=== PATIENT | male | born 1940 | race Caucasian/White ===

== ENCOUNTER 2019-01-26 16:02 | Inpatient (IN) | payer MEDICARE, OTHER ==
[2019-01-26] MEDS ORDERED: SODIUM CHLORIDE 0.9% 1,000 ML IV STA ×2 (16:35)
--- NOTE | 2019-01-26 16:35 | ED ---
Fever HPI - General Chief Complaint: Fever Stated Complaint: elevated temp Time Seen by Provider: 01/26/19 16:12 Source: patient, EMS, RN notes reviewed, old records reviewed Mode of arrival: EMS Limitations: no limitations, altered mental status - History of Present Illness Initial Comments: This is an 78-year-old male the ER for evaluation. Presents today for evaluation regards to fever. Fever and burning with urination. No recent travel history no sick contacts. Patient has multiple recent hospital admissions. Patient has cough or congestion denies any other pain patient does have significant medical history is presenting today with altered mental status. Prior medical notes and EMS MD Complaint: fever, weakness -: unknown Context: sick contacts Associated Symptoms: chills, myalgias, abdominal pain, confusion Treatments Prior to Arrival: none - Related Data Home Medications Medication Instructions Recorded Confirmed ALPRAZolam [Xanax] 0.5 mg PO BID PRN 12/03/13 01/26/19 Atorvastatin [Lipitor] 80 mg PO HS 12/03/13 01/26/19 Nitroglycerin Sl Tabs [Nitrostat] 0.4 mg SL Q5M PRN 12/03/13 01/26/19 Ergocalciferol [Vitamin D2 50,000 unit PO MO 02/22/16 01/26/19 (DRISDOL)] Acetaminophen [Tylenol Arthritis] 650 mg PO Q8H PRN 01/26/19 01/26/19 Divalproex Sodium [Depakote ER] 250 mg PO DAILY 01/26/19 01/26/19 HYDROcodone/APAP 7.5-325MG [[place] 1 tab PO TID 01/26/19 01/26/19 7.5-325] Sertraline [Zoloft] 100 mg PO DAILY 01/26/19 01/26/19 Tamsulosin [Flomax] 0.4 mg PO HS 01/26/19 01/26/19 Previous Rx's Medication Instructions Recorded Pantoprazole [Protonix] 40 mg PO AC-BRKFST #30 tablet. 12/15/15 Allergies Allergy/AdvReac Type Severity Reaction Status Date / Time Penicillins Allergy Rash/Hives Verified 01/26/19 17:18 Review of Systems ROS Statement: Those systems with pertinent positive or pertinent negative responses have been documented in the HPI. ROS Other: All systems not noted in ROS Statement are negative. Past Medical History Past Medical History: Coronary Artery Disease (CAD), Cancer, Chest Pain / Angina, COPD, Eye Disorder, GERD/Reflux, Hyperlipidemia, Hypertension, Myocardial Infarction (MO), Osteoarthritis (OA), Pneumonia, Prostate Disorder Additional Past Medical History / Comment(s): INCONT OF URINE- USES DEPENDS, G LAUCOMA- WEARS GLASSES TO DRIVE ONLY, pain lt hip and rt knee, prostate cancer recently dx has'nt had nay sx or radiation or chemo as of yet."hypoglycemia".dwayne inguinal hernia, stated has lost 50 pouns since september 2014, uti Last Myocardial Infarction Date:: 2012 History of Any Multi-Drug Resistant Organisms: None Reported Past Surgical History: Back Surgery, Heart Catheterization With Stent, Joint Replacement, Orthopedic Surgery Additional Past Surgical History / Comment(s): 2 STENTS, CATARACT, LASER EYE SX, FUSION TO BACK, RT KNEE REPLACEMENT X2, LT HAND PINKY FINGER SX, "lt hip surgery with metal" POPPED OUT A FEW TIMES & HAD TO BE POPPED BACK IN, PAIN CLINIC PROCEDURE, COLONOSCOPY Past Anesthesia/Blood Transfusion Reactions: No Reported Reaction Date of Last Stent Placement:: 2012 Past Psychological History: Anxiety, Depression Smoking Status: Current every day smoker Past Alcohol Use History: None Reported Past Drug Use History: None Reported - Past Family History Daughter(s) Family Medical History: No Reported History Additional Family Medical History / Comment(s): left leg fx x3; right leg fx x1. left wrist fx x2; breast reduction sx; hyst; cystocele; tubal; anxiety, depression Mother Family Medical History: Myocardial Infarction ([place]) Additional Family Medical History / Comment(s): 1979- Father Additional Family Medical History / Comment(s): WITH GANGRENE @ AGE 65 General Exam Limitations: no limitations General appearance: alert, in no apparent distress Head exam: Present: atraumatic, normocephalic, normal inspection Eye exam: Present: normal appearance, PERRL, EOMI. Absent: scleral icterus, conjunctival injection, periorbital swelling ENT exam: Present: normal exam, mucous membranes moist Neck exam: Present: normal inspection. Absent: tenderness, meningismus, lymphad enopathy Respiratory exam: Present: normal lung sounds bilaterally. Absent: respiratory distress, wheezes, rales, rhonchi, stridor Cardiovascular Exam: Present: regular rate, normal rhythm, normal heart sounds. Absent: systolic murmur, diastolic murmur, rubs, gallop, clicks GI/Abdominal exam: Present: soft, normal bowel sounds. Absent: distended, tenderness, guarding, rebound, rigid Extremities exam: Present: normal inspection, full ROM, normal capillary refill. Absent: tenderness, pedal edema, joint swelling, calf tenderness Back exam: Present: normal inspection Neurological exam: Present: alert, oriented X3, CN II-XII intact Psychiatric exam: Present: normal affect, normal mood Skin exam: Present: warm, dry, intact, normal color. Absent: rash Course Vital Signs 01/26/19 01/26/19 01/26/19 16:28 19:00 19:10 Temperature 101.1 F H 99.4 F Pulse Rate 77 68 Respiratory 18 18 Rate Blood Pressure 133/73 133/73 O2 Sat by Pulse 95 96 Oximetry - Reevaluation(s) Reevaluation #1: 01/26/19 16:37 Medical records reviewed Reevaluation #2: 01/26/19 19:30 patient with no improvement with clinical condition Medical Decision Making - Medical Decision Making 78 male to the ED co weakness. Noted of UTI fever. Patient be admitted for hydration and IV antibiotics and continue monitoring - Lab Data Result diagrams: 01/26/19 16:39 01/26/19 16:39 Lab Results 01/26/19 01/26/19 01/26/19 Range/Units 16:39 16:39 16:39 WBC 15.1 H (3.8-10.6) k/uL RBC 3.80 L (4.30-5.90) m/uL Hgb 12.4 L (13.0-17.5) gm/dL Hct 37.8 L (39.0-53.0) % MCV 99.5 (80.0-100.0) fL MCH 32.7 (25.0-35.0) pg MCHC 32.9 (31.0-37.0) g/dL RDW 14.4 (11.5-15.5) % Plt Count 184 (150-450) k/uL Neutrophils % 89 % Lymphocytes % 3 % Monocytes % 5 % Eosinophils % 2 % Basophils % 0 % Neutrophils # 13.5 H (1.3-7.7) k/uL Lymphocytes # 0.4 L (1.0-4.8) k/uL Monocytes # 0.8 (0-1.0) k/uL Eosinophils # 0.3 (0-0.7) k/uL Basophils # 0.0 (0-0.2) k/uL Macrocytosis Slight PT (9.0-12.0) sec INR (<1.2) APTT (22.0-30.0) sec Sodium 140 (137-145) mmol/L Potassium 4.1 (3.5-5.1) mmol/L Chloride 108 H (98-107) mmol/L Carbon Dioxide 21 L (22-30) mmol/L Anion Gap 11 mmol/L BUN 25 H (9-20) mg/dL Creatinine 1.33 H (0.66-1.25) mg/dL Est GFR (CKD-EPI)AfAm 58 (>60 ml/min/1.73 sqM) Est GFR (CKD-EPI)NonAf 50 (>60 ml/min/1.73 sqM) Glucose 110 H (74-99) mg/dL Plasma Lactic Acid Kenny 1.2 (0.7-2.0) mmol/L Calcium 8.4 (8.4-10.2) mg/dL Phosphorus 1.8 L (2.5-4.5) mg/dL Magnesium 1.6 (1.6-2.3) mg/dL Total Bilirubin 0.6 (0.2-1.3) mg/dL AST 21 (17-59) U/L ALT 18 L (21-72) U/L Alkaline Phosphatase 83 (38-126) U/L Troponin I (0.000-0.034) ng/mL Total Protein 7.0 (6.3-8.2) g/dL Albumin 3.9 (3.5-5.0) g/dL Urine Color Urine Appearance (Clear) Urine pH (5.0-8.0) Ur Specific [place] (1.001-1.035) Urine Protein (Negative) Urine Glucose (UA) (Negative) Urine Ketones (Negative) Urine Blood (Negative) Urine Nitrite (Negative) Urine Bilirubin (Negative) Urine Urobilinogen (<2.0) mg/dL Ur Leukocyte Esterase (Negative) Urine RBC (0-5) /hpf Urine WBC (0-5) /hpf Urine Bacteria (None) /hpf Urine Mucus (None) /hpf 01/26/19 01/26/19 01/26/19 Range/Units 16:39 16:39 16:39 WBC (3.8-10.6) k/uL RBC (4.30-5.90) m/uL Hgb (13.0-17.5) gm/dL Hct (39.0-53.0) % MCV (80.0-100.0) fL MCH (25.0-35.0) pg MCHC (31.0-37.0) g/dL RDW (11.5-15.5) % Plt Count (150-450) k/uL Neutrophils % % Lymphocytes % % Monocytes % % Eosinophils % % Basophils % % Neutrophils # (1.3-7.7) k/uL Lymphocytes # (1.0-4.8) k/uL Monocytes # (0-1.0) k/uL Eosinophils # (0-0.7) k/uL Basophils # (0-0.2) k/uL Macrocytosis PT 11.1 (9.0-12.0) sec INR 1.1 (<1.2) APTT 27.5 (22.0-30.0) sec Sodium (137-145) mmol/L Potassium (3.5-5.1) mmol/L Chloride (98-107) mmol/L Carbon Dioxide (22-30) mmol/L Anion Gap mmol/L BUN (9-20) mg/dL Creatinine (0.66-1.25) mg/dL Est GFR (CKD-EPI)AfAm (>60 ml/min/1.73 sqM) Est GFR (CKD-EPI)NonAf (>60 ml/min/1.73 sqM) Glucose (74-99) mg/dL Plasma Lactic Acid Kenny (0.7-2.0) mmol/L Calcium (8.4-10.2) mg/dL Phosphorus (2.5-4.5) mg/dL Magnesium (1.6-2.3) mg/dL Total Bilirubin (0.2-1.3) mg/dL AST (17-59) U/L ALT (21-72) U/L Alkaline Phosphatase (38-126) U/L Troponin I <0.012 (0.000-0.034) ng/mL Total Protein (6.3-8.2) g/dL Albumin (3.5-5.0) g/dL Urine Color Yellow Urine Appearance Cloudy (Clear) Urine pH 6.0 (5.0-8.0) Ur Specific [place] 1.017 (1.001-1.035) Urine Protein 1+ H (Negative) Urine Glucose (UA) Negative (Negative) Urine Ketones Negative (Negative) Urine Blood Moderate H (Negative) Urine Nitrite Positive (Negative) Urine Bilirubin Negative (Negative) Urine Urobilinogen <2.0 (<2.0) mg/dL Ur Leukocyte Esterase Large H (Negative) Urine RBC 6 H (0-5) /hpf Urine WBC 126 H (0-5) /hpf Urine Bacteria Rare H (None) /hpf Urine Mucus Rare H (None) /hpf Disposition Clinical Impression: Weakness, Fever, UTI (urinary tract infection) Disposition: ADMITTED IP TO THIS [facility] Condition: Fair Referrals: Allison Melendez MD [Primary Care Provider] - 1-2 days
[2019-01-26 16:51] LABS: Basophils % (A) 0 %; Eosinophils # (A) 0.3 k/uL (0-0.7); Eosinophils % (A) 2 %; HCT 37.8 % (39.0-53.0); HGB 12.4 gm/dL (13.0-17.5); Lymphocytes # (A) 0.4 k/uL (1.0-4.8); Lymphocytes % (A) 3 %; MCH 32.7 pg (25.0-35.0); MCHC 32.9 g/dL (31.0-37.0); MCV 99.5 fL (80.0-100.0); Macrocytosis Slight; Mean Platelet Volume 7.4; Monocytes # (A) 0.8 k/uL (0-1.0); Monocytes % (A) 5 %; Neutrophils # (A) 13.5 k/uL (1.3-7.7); Neutrophils % (A) 89 %; Platelet Count 184 k/uL (150-450); RDW 14.4 % (11.5-15.5); WBC 15.1 k/uL (3.8-10.6)
[2019-01-26] MEDS ORDERED: ACETAMINOPHEN TAB 500 MG TAB PO STA (16:52)
[2019-01-26] MEDS ORDERED: IBUPROFEN 600 MG TAB PO STA (16:52)
[2019-01-26 16:55] LABS: Appearance,Urine Cloudy (Clear); Bacteria,Urine Rare /hpf; Bilirubin,Urine Negative (Negative); Blood,Urine Moderate (Negative); Color,Urine Yellow; Glucose,Urine (UA) Negative (Negative); Ketones,Urine Negative (Negative); Leukocyte Esterase,Urine Large (Negative); Mucus,Urine Rare /hpf; Nitrite,Urine Positive (Negative); Protein,Urine 1+ (Negative); RBC,Urine 6 /hpf (0-5); Specific Gravity,Urine 1.017 (1.001-1.035); Urobilinogen,Urine <2.0 mg/dL (<2.0); WBC,Urine 126 /hpf (0-5)
[2019-01-26 16:59] LABS: Albumin 3.9 g/dL (3.5-5.0); Calcium 8.4 mg/dL (8.4-10.2); Magnesium 1.6 mg/dL (1.6-2.3); Phosphorus 1.8 mg/dL (2.5-4.5); Potassium 4.1 mmol/L (3.5-5.1); Total Bilirubin 0.6 mg/dL (0.2-1.3)
[2019-01-26 17:00] LABS: INR 1.1 (<1.2); Partial Thromboplastin Time 27.5 sec (22.0-30.0); Prothrombin Time 11.1 sec (9.0-12.0)
--- NOTE | 2019-01-26 19:22 | XR ---
EXAMINATION: XR chest 2V DATE AND TIME: 01/26/2019 5:34 PM CLINICAL INDICATION: PHH; Weakness TECHNIQUE: AP and lateral COMPARISON: 02/25/2016 FINDINGS: Cardiac pacemaker and EKG leads. The lungs are clear. The pleural spaces are negative. The cardiac silhouette is mildly enlarged. The remainder of the mediastinal silhouette is unremarkabl e. The skeletal structures and soft tissues are negative for acute findings. Right humeral shaft intramedullary calcification likely incidental enchondroma, which can be confirme d with a lack of pain referable to this position. IMPRESSION: NO ACUTE PROCESS.
[2019-01-26 20:45] LABS: Glucose,Whole Blood 125 mg/dL (75-99)
[2019-01-26 21:25] VITALS: BMI 25.1
[2019-01-26] MEDS ORDERED: ALPRAZolam 0.5 MG TAB PO PRN (21:47)
[2019-01-26] MEDS ORDERED: ACETAMINOPHEN TAB 325 MG TAB PO PRN (21:47)
[2019-01-26] MEDS ORDERED: NITROGLYCERIN SL TABS 0.4 MG TAB SUBLINGUAL PRN (21:47)
[2019-01-26] MEDS: TAMSULOSIN 0.4 MG CAP.ER.24H PO SCH (22:46)
[2019-01-26] MEDS: ATORVASTATIN 80 MG TAB PO SCH (22:46)
[2019-01-27] MEDS: NICOTINE 21MG/24HR PATCH TRANSDERM SCH (08:50)
[2019-01-27] MEDS ORDERED: ENOXAPARIN 40 MG/0.4 ML SYRINGE SQ SCH (09:00)
[2019-01-27] MEDS: HYDROcodone/APAP 7.5-325MG 1 EACH TAB PO PRN ×2 (13:37→20:57)
[2019-01-27] MEDS ORDERED: POLYETHYLENE GLYCOL 3350 17 GM POWD.PACK PO PRN (14:12)
[2019-01-27 15:12] LABS: Basophils % (A) 0 %; Eosinophils # (A) 0.2 k/uL (0-0.7); Eosinophils % (A) 2 %; HGB 11.2 gm/dL (13.0-17.5); Lymphocytes # (A) 0.9 k/uL (1.0-4.8); Lymphocytes % (A) 7 %; MCH 32.7 pg (25.0-35.0); MCV 102.2 fL (80.0-100.0); Macrocytosis Slight; Mean Platelet Volume 7.5; Monocytes # (A) 0.6 k/uL (0-1.0); Monocytes % (A) 5 %; Neutrophils % (A) 85 %; Platelet Count 158 k/uL (150-450); RBC 3.43 m/uL (4.30-5.90); RDW 14.5 % (11.5-15.5); WBC 12.9 k/uL (3.8-10.6)
--- NOTE | 2019-01-27 16:24 | P.HPIM ---
History of Present Illness 78-year-old pleasant gentleman came in with the dysuria increased urinary frequency found to have significant abnormal urine. Does have fever and leukocytosis denied any cough chest x-ray did not show any pneumonia. Patient denied any urinary retention denied any prostate problems never had any urinary tract infection in the past patient was started on Rocephin urine cultures blood cultures were obtain which are pending. Patient is feeling much better now and doesn't have any dysuria anymore doesn't have any altered mental status patient apparently presented with altered mental status to ER which improved now. Review of Systems REVIEW OF SYSTEMS: CONSTITUTIONAL: no malaise, no fatigue. HEENT: No recent visual problems or hearing problems. Denied any sore throat. CARDIOVASCULAR: No chest pain, orthopnea, PND, no palpitations, no syncope. PULMONARY: No shortness of breath, no cough, no hemoptysis. GASTROINTESTINAL: No diarrhea, no nausea, no vomiting, no abdominal pain. NEUROLOGICAL: No headaches, no weakness, no numbness. HEMATOLOGICAL: Denies any bleeding or petechiae. GENITOURINARY: As mentioned in HPI MUSCULOSKELETAL/RHEUMATOLOGICAL: Denies any joint pain, swelling, or any muscle pain. ENDOCRINE: Denies any polyuria or polydipsia. The rest of the 14-point review of systems is negative. Past Medical History Past Medical History: Coronary Artery Disease (CAD), Cancer, Chest Pain / Angina, COPD, Eye Disorder, GERD/Reflux, Hyperlipidemia, Hypertension, Myocardial Infarction (NM), Osteoarthritis (OA), Pneumonia, Prostate Disorder Additional Past Medical History / Comment(s): INCONT OF URINE- USES DEPENDS, GLAUCOMA- WEARS GLASSES TO DRIVE ONLY, pain lt hip and rt knee, prostate cancer recently dx has'nt had nay sx or radiation or chemo as of yet."hypoglycemia".dwayne inguinal hernia, stated has lost 50 pouns since september 2014, uti Last Myocardial Infarction Date:: 2012 History of Any Multi-Drug Resistant Organisms: None Reported Past Surgical History: Back Surgery, Heart Catheterization With Stent, Joint Replacement, Orthopedic Surgery Additional Past Surgical History / Comment(s): 2 STENTS, CATARACT, LASER EYE SX, FUSION TO BACK, RT KNEE REPLACEMENT X2, LT HAND PINKY FINGER SX, "lt hip surgery with metal" POPPED OUT A FEW TIMES & HAD TO BE POPPED BACK IN, PAIN CLINIC PROCEDURE, COLONOSCOPY Past Anesthesia/Blood Transfusion Reactions: No Reported Reaction Date of Last Stent Placement:: 2012 Past Psychological History: Anxiety, Depression Additional Psychological History / Comment(s): pt lives at [facility] WITH HIS EX AUTUM[employer],uses a rolling walker when up, still drives occ. pt has some depression over medical problems but denies any thoughts of wanting to harm self.no hopelessness. Smoking Status: Current every day smoker Past Alcohol Use History: None Reported Additional Past Alcohol Use History / Comment(s): STARTED SMOKING AGE 13(1955) SMOKES LESS THAN 1/2 PPD, PT WAS GIVEN SMOKING CESSATION BOOKLET LAST ADMIT,AUTUMN STATED HE HAS IT AT HOME Past Drug Use History: None Reported - Past Family History Daughter(s) Family Medical History: No Reported History Additional Family Medical History / Comment(s): left leg fx x3; right leg fx x1. left wrist fx x2; breast reduction sx; hyst; cystocele; tubal; anxiety, depression Mother Family Medical History: Myocardial Infarction ([place]) Additional Family Medical History / Comment(s): 1979- Father Additional Family Medical History / Comment(s): WITH GANGRENE @ AGE 65 Medications and Allergies Home Medications Medication Instructions Recorded Confirmed Type ALPRAZolam [Xanax] 0.5 mg PO BID PRN 12/03/13 01/26/19 History Atorvastatin [Lipitor] 80 mg PO HS 12/03/13 01/26/19 History Nitroglycerin Sl Tabs [Nitrostat] 0.4 mg SL Q5M PRN 12/03/13 01/26/19 History Pantoprazole [Protonix] 40 mg PO AC-BRKFST #30 tablet. 12/15/15 01/26/19 Rx Ergocalciferol [Vitamin D2 50,000 unit PO MO 02/22/16 01/26/19 History (CARMELO)] Acetaminophen [Tylenol Arthritis] 650 mg PO Q8H PRN 01/26/19 01/26/19 History Aspirin [Adult Low Dose Aspirin EC] 81 mg PO DAILY 01/26/19 01/26/19 History Divalproex Sodium [Depakote ER] 250 mg PO DAILY 01/26/19 01/26/19 History HYDROcodone/APAP 7.5-325MG [[place] 1 tab PO TID 01/26/19 01/26/19 History 7.5-325] Sertraline [Zoloft] 100 mg PO DAILY 01/26/19 01/26/19 History Tamsulosin [Flomax] 0.4 mg PO HS 01/26/19 01/26/19 History Allergies Allergy/AdvReac Type Severity Reaction Status Date / Time Penicillins Allergy Rash/Hives Verified 01/26/19 17:18 Physical Exam Vitals: Vital Signs Temp Pulse Pulse Resp BP BP Pulse Ox 01/27/19 15:00 98.1 F 60 20 102/54 95 01/27/19 14:16 20 01/27/19 08:00 20 01/27/19 04:30 97.6 F 68 20 104/59 98 01/26/19 20:45 98 F 82 20 98/56 97 01/26/19 20:08 98.4 F 61 20 111/80 96 01/26/19 20:00 169/99 01/26/19 19:10 68 18 133/73 96 01/26/19 19:00 99.4 F 01/26/19 16:28 101.1 F H 77 18 133/73 95 Intake and Output 01/27/19 01/27/19 01/27/19 06:59 14:59 22:59 Intake Total 100 Output Total 400 200 Balance -300 -200 Intake: Oral 100 Output: Urine 400 200 Other: Voiding Method Incontinent Incontinent # Voids 1 PHYSICAL EXAMINATION: GENERAL: The patient is alert and oriented x3, not in any acute distress. Well developed, well nourished. HEENT: Pupils are round and equally reacting to light. EOMI. No scleral icterus. No conjunctival pallor. Normocephalic, atraumatic. No pharyngeal erythema. No thyromegaly. CARDIOVASCULAR: S1 and S2 present. No murmurs, rubs, or gallops. PULMONARY: Chest is clear to auscultation, no wheezing or crackles. ABDOMEN: Soft, nontender, nondistended, normoactive bowel sounds. No palpable organomegaly. MUSCULOSKELETAL: No joint swelling or deformity. EXTREMITIES: No cyanosis, clubbing, or pedal edema. NEUROLOGICAL: Gross neurological examination did not reveal any focal deficits. SKIN: No rashes. Results CBC & Chem 7: 01/27/19 14:52 01/26/19 16:39 Labs: Abnormal Lab Results - Last 24 Hours (Table) 01/26/19 01/26/19 01/26/19 Range/Units 16:39 16:39 16:39 WBC 15.1 H (3.8-10.6) k/uL RBC 3.80 L (4.30-5.90) m/uL Hgb 12.4 L (13.0-17.5) gm/dL Hct 37.8 L (39.0-53.0) % MCV (80.0-100.0) fL Neutrophils # 13.5 H (1.3-7.7) k/uL Lymphocytes # 0.4 L (1.0-4.8) k/uL Chloride 108 H (98-107) mmol/L Carbon Dioxide 21 L (22-30) mmol/L BUN 25 H (9-20) mg/dL Creatinine 1.33 H (0.66-1.25) mg/dL Glucose 110 H (74-99) mg/dL POC Glucose (mg/dL) (75-99) mg/dL Phosphorus 1.8 L (2.5-4.5) mg/dL ALT 18 L (21-72) U/L Urine Protein 1+ H (Negative) Urine Blood Moderate H (Negative) Ur Leukocyte Esterase Large H (Negative) Urine RBC 6 H (0-5) /hpf Urine WBC 126 H (0-5) /hpf Urine Bacteria Rare H (None) /hpf Urine Mucus Rare H (None) /hpf 01/26/19 01/27/19 Range/Units 20:43 14:52 WBC 12.9 H (3.8-10.6) k/uL RBC 3.43 L (4.30-5.90) m/uL Hgb 11.2 L (13.0-17.5) gm/dL Hct 35.0 L (39.0-53.0) % MCV 102.2 H (80.0-100.0) fL Neutrophils # 11.0 H (1.3-7.7) k/uL Lymphocytes # 0.9 L (1.0-4.8) k/uL Chloride (98-107) mmol/L Carbon Dioxide (22-30) mmol/L BUN (9-20) mg/dL Creatinine (0.66-1.25) mg/dL Glucose (74-99) mg/dL POC Glucose (mg/dL) 125 H (75-99) mg/dL Phosphorus (2.5-4.5) mg/dL ALT (21-72) U/L Urine Protein (Negative) Urine Blood (Negative) Ur Leukocyte Esterase (Negative) Urine RBC (0-5) /hpf Urine WBC (0-5) /hpf Urine Bacteria (None) /hpf Urine Mucus (None) /hpf Microbiology - Last 24 Hours (Table) 01/26/19 16:39 Urine Culture - Preliminary Urine,Catheterized Thrombosis Risk Factor Assmnt - Choose All That Apply Any of the Below Risk Factors Present?: Yes Each Factor Represents 1 point: Abnormal pulmonary function (COPD) Other Risk Factors: Yes Each Risk Factor Represents 3 Points: Age 75 years or older Thrombosis Risk Factor Assessment Total Risk Factor Score: 4 Thrombosis Risk Factor Assessment Level: Moderate Risk Assessment and Plan Plan: -Sepsis secondary to urinary tract infection: The Patient continued on Rocephin, awaiting urine cultures and blood cultures -Acute renal failure probably prerenal azotemia and do not have his baseline creatinine chronic kidney disease cannot be ruled out at this time repeat basic metabolic profile acute renal failure secondary to prerenal azotemia from sepsis -Coronary artery disease with previous stents in the past -COPD -Gastroesophageal reflux disease -Hyperlipidemia -Hypertension Benign prostatic hypertrophy -Osteoarthritis in the past -Due to prophylaxis as subcutaneous heparin
[2019-01-27] MEDS: SODIUM CHLORIDE 0.9% 1,000 ML IV SCH (16:45)
[2019-01-27] MEDS: ATORVASTATIN 80 MG TAB PO SCH (20:57)
[2019-01-27] MEDS: HEPARIN SODIUM,PORCINE 5,000 UNIT/ML 1 ML VIAL SQ SCH (20:57)
[2019-01-27] MEDS: TAMSULOSIN 0.4 MG CAP.ER.24H PO SCH (20:57)
[2019-01-28] MEDS: SODIUM CHLORIDE 0.9% 1,000 ML IV SCH ×2 (06:26→10:03)
[2019-01-28] MEDS ORDERED: PANTOPRAZOLE 40 MG TABLET PO SCH (07:30)
[2019-01-28] MEDS: HEPARIN SODIUM,PORCINE 5,000 UNIT/ML 1 ML VIAL SQ SCH (08:07)
[2019-01-28] MEDS: NICOTINE 21MG/24HR PATCH TRANSDERM SCH (08:08)
[2019-01-28] MEDS: HYDROcodone/APAP 7.5-325MG 1 EACH TAB PO PRN (08:19)
[2019-01-28] MEDS ORDERED: DIVALPROEX ER 250 MG TAB.ER.24H PO SCH (09:00)
[2019-01-28] MEDS ORDERED: ASPIRIN 81 MG PO SCH (09:00)
[2019-01-28] MEDS ORDERED: SERTRALINE 100 MG TAB PO SCH (09:00)
[2019-01-28 10:20] LABS: Calcium 8.7 mg/dL (8.4-10.2); Potassium 4.3 mmol/L (3.5-5.1)
[2019-01-28 14:12] VITALS: BP 114/45; PULSE 61; RESP 18; TEMP 97.4
--- NOTE | 2019-01-28 16:16 | P.DS ---
Providers Date of admission: 01/28/19 07:07 Attending physician: Roberth Garcia Primary care physician: Allison Nora [facility] Course: Patient was admitted for sepsis secondary to urinary tract infection urine cultures are showing gram-negative bacilli do not have finalization of cultures ideally want to keep him on tomorrow to get the finalized cultures and decide on antibiotic but patient is insisting on discharge held at discharge the patient on empiric Ceftin will follow-up on the cultures tomorrow if needed to change the antibiotic was changed tomorrow and will call the patient at that time. PHYSICAL EXAMINATION: GENERAL: The patient is alert and oriented x3, not in any acute distress. Well developed, well nourished. HEENT: Pupils are round and equally reacting to light. EOMI. No scleral icterus. No conjunctival pallor. Normocephalic, atraumatic. No pharyngeal erythema. No thyromegaly. CARDIOVASCULAR: S1 and S2 present. No murmurs, rubs, or gallops. PULMONARY: Chest is clear to auscultation, no wheezing or crackles. ABDOMEN: Soft, nontender, nondistended, normoactive bowel sounds. No palpable organomegaly. MUSCULOSKELETAL: No joint swelling or deformity. EXTREMITIES: No cyanosis, clubbing, or pedal edema. NEUROLOGICAL: Gross neurological examination did not reveal any focal deficits. SKIN: No rashes. 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 Ergocalciferol [Vitamin D2 (DRISDOL)] 50,000 unit PO MO Sertraline [Zoloft] 100 mg PO DAILY HYDROcodone/APAP 7.5-325MG [[place] 7.5-325] 1 tab PO TID Tamsulosin [Flomax] 0.4 mg PO HS Divalproex Sodium [Depakote ER] 250 mg PO DAILY Acetaminophen [Tylenol Arthritis] 650 mg PO Q8H PRN PRN Reason: Pain Aspirin [Adult Low Dose Aspirin EC] 81 mg PO DAILY Discharge Medication List ALPRAZolam [Xanax] 0.5 mg PO BID PRN 12/03/13 [History] Atorvastatin [Lipitor] 80 mg PO HS 12/03/13 [History] Nitroglycerin Sl Tabs [Nitrostat] 0.4 mg SL Q5M PRN 12/03/13 [History] Pantoprazole [Protonix] 40 mg PO AC-BRKFST #30 tablet. 12/15/15 [Rx] Ergocalciferol [Vitamin D2 (DRISDOL)] 50,000 unit PO MO 02/22/16 [History] Acetaminophen [Tylenol Arthritis] 650 mg PO Q8H PRN 01/26/19 [History] Aspirin [Adult Low Dose Aspirin EC] 81 mg PO DAILY 01/26/19 [History] Divalproex Sodium [Depakote ER] 250 mg PO DAILY 01/26/19 [History] HYDROcodone/APAP 7.5-325MG [[place] 7.5-325] 1 tab PO TID 01/26/19 [History] Sertraline [Zoloft] 100 mg PO DAILY 01/26/19 [History] Tamsulosin [Flomax] 0.4 mg PO HS 01/26/19 [History] Cefuroxime Axetil [Ceftin] 500 mg PO BID 5 Days #10 tab 01/28/19 [Rx] Follow up Appointment(s)/Referral(s): Allison Melendez MD [Primary Care Provider] - 3 Days Activity/Diet/Wound Care/Special Instructions: [facility] [phone] Discharge Disposition: HOME SELF-CARE
--- NOTE | 2019-01-29 09:38 | P.PN ---
Progress Note - Text Patient's urine cultures were reviewed and it showed capsular pneumonia which is sensitive to the antibiotic he was sent home on which is Ceftin.
[2019-02-01] MEDS ORDERED: ERGOCALCIFEROL 50,000 UNIT CAP PO SCH (09:00)
== END 2019-01-28 17:08 | disposition home health service (06) | DRG 872 ==
LOC: EC 16:02 → 4MS4W 19:28 → OBSVTOIN 01-28 07:07
PROVIDERS: ADMIT Hospitalist; ATTEND Hospitalist
DX: A41.9 Sepsis, unspecified organism (principal); N39.0 Urinary tract infection, site not specified; N17.9 Acute kidney failure, unspecified; J44.9 Chronic obstructive pulmonary disease, unspecified; I25.10 Atherosclerotic heart disease of native coronary artery without angina pectoris; K21.9 Gastro-esophageal reflux disease without esophagitis; N40.0 Benign prostatic hyperplasia without lower urinary tract symptoms; E78.5 Hyperlipidemia, unspecified; I10 Essential (primary) hypertension; M19.90 Unspecified osteoarthritis, unspecified site; F17.200 Nicotine dependence, unspecified, uncomplicated; F32.9 Major depressive disorder, single episode, unspecified; F41.9 Anxiety disorder, unspecified; Z96.651 Presence of right artificial knee joint; H40.9 Unspecified glaucoma; I25.2 Old myocardial infarction; Z95.5 Presence of coronary angioplasty implant and graft; Z79.82 Long term (current) use of aspirin; Z79.899 Other long term (current) drug therapy; Z81.8 Family history of other mental and behavioral disorders; Z82.49 Family history of ischemic heart disease and other diseases of the circulatory system; Z85.46 Personal history of malignant neoplasm of prostate; Z88.0 Allergy status to penicillin; Z98.49 Cataract extraction status, unspecified eye; Z87.01 Personal history of pneumonia (recurrent)
CPT/HCPCS: 36415; 71046; 80048; 80053; 81001; 83605; 83735; 84100; 84484; 85025; 85610; 85730; 87040; 87077; 87086; 87186; 93005; 94760; 96361; 96365; 99285

== ENCOUNTER 2020-08-28 17:03 | Emergency (ER) | payer MEDICARE, OTHER ==
[2020-08-28 17:25] VITALS: RESP 20; TEMP 97.5
--- NOTE | 2020-08-28 17:58 | ED ---
General Adult HPI - General Chief complaint: Fall Stated complaint: Fall Time Seen by Provider: 08/28/20 17:25 Source: patient, EMS Mode of arrival: EMS Limitations: no limitations - History of Present Illness Initial comments: Dictation was produced using [employer] dictation software. please excuse any grammatical, word or spelling errors. This patient was cared for during a federal and state declared state of emergency secondary to Covid 19 Chief Complaint: 80-year-old male presents after fall. History of Present Illness: Is an 80-year-old male. In order to make a slight easy year he puts a jug that he urinates and whenever he has to go to the bathroom. He states that earlier today he was alleged to bed urinating. He states that he finished when all of a sudden he lost his balance fell and hit his head. He denies any loss of consciousness. Denies any neck pain. EMS brought the patient to the emergency department. Patient denies taking any blood thinners. He complains of some mild tailbone pain. Patient ambulatory after incident. The ROS documented in this emergency department record has been reviewed and confirmed by me. Those systems with pertinent positive or negative responses have been documented in the HPI. All other systems are other negative and/or noncontributory. PHYSICAL EXAM: General Impression: Alert and oriented x3, not in acute distress HEENT: Normocephalic atraumatic, extra-ocular movements intact, pupils equal and reactive to light bilaterally, mucous membranes moist. Cardiovascular: Heart regular rate and rhythm Chest: Able to complete full sentences, no retractions, no tachypnea Abdomen: abdomen soft, non-tender, non-distended, no organomegaly Musculoskeletal: Pulses present and equal in all extremities, no peripheral edema Motor: no focal deficits noted Neurological: CN II-XII grossly intact, no focal motor or sensory deficits noted Skin: Intact with no visualized rashes Psych: Normal affect and mood ED course: 80-year-old male presents after fall. As upon arrival are within acceptable limits. Patient's well-appearing at bedside. He has no signs of severe traumatic injury. Physical examination is benign. Patient read the emergency department with c-collar. Patient observed in emergency department for Laboratory evaluation obtained found to be within acceptable limits.. Computed tomography scan of the head and C-spine is unremarkable. Chest x-ray nonacute. Pelvis x-rays negative. Patient will be discharged. EKG interpretation: Ventricular rate 62, atrial paced rhythm, OR interval 234, QRS 92, QTC 426. No OR prolongation, no QTC prolongation, no ST or T-wave changes noted. Overall, this EKG is unremarkable Patient observed in the emergency department for approximately 2 hours and 30 minutes with stable medical condition. He is reevaluated at bedside at 7:40 PM. Patient is agreeable for discharge. Patient is well-appearing shot not showing any signs of weakness. Advised follow-up with his primary care physician. Return parameters discussed. - Related Data Home Medications Medication Instructions Recorded Confirmed ALPRAZolam [Xanax] 0.5 mg PO BID PRN 12/03/13 01/26/19 Atorvastatin [Lipitor] 80 mg PO HS 12/03/13 01/26/19 Nitroglycerin Sl Tabs [Nitrostat] 0.4 mg SL Q5M PRN 12/03/13 01/26/19 Ergocalciferol [Vitamin D2 50,000 unit PO MO 02/22/16 01/26/19 (CARMELO)] Acetaminophen [Tylenol Arthritis] 650 mg PO Q8H PRN 01/26/19 01/26/19 Aspirin [Adult Low Dose Aspirin EC] 81 mg PO DAILY 01/26/19 01/26/19 Divalproex Sodium [Depakote ER] 250 mg PO DAILY 01/26/19 01/26/19 HYDROcodone/APAP 7.5-325MG [[place] 1 tab PO TID 01/26/19 01/26/19 7.5-325] Sertraline [Zoloft] 100 mg PO DAILY 01/26/19 01/26/19 Tamsulosin [Flomax] 0.4 mg PO HS 01/26/19 01/26/19 Previous Rx's Medication Instructions Recorded Pantoprazole [Protonix] 40 mg PO AC-BRKFST #30 tablet. 12/15/15 Cefuroxime Axetil [Ceftin] 500 mg PO BID 5 Days #10 tab 01/28/19 Allergies Allergy/AdvReac Type Severity Reaction Status Date / Time Penicillins Allergy Rash/Hives Verified 08/28/20 17:25 Review of Systems ROS Statement: Those systems with pertinent positive or pertinent negative responses have been documented in the HPI. ROS Other: All systems not noted in ROS Statement are negative. Past Medical History Past Medical History: Coronary Artery Disease (CAD), Cancer, Chest Pain / Angina, COPD, Eye Disorder, GERD/Reflux, Hyperlipidemia, Hypertension, Myocardial Infarction (NH), Osteoarthritis (OA), Pneumonia, Prostate Disorder Additional Past Medical History / Comment(s): INCONT OF URINE- USES DEPENDS, GLAUCOMA- WEARS GLASSES TO DRIVE ONLY, pain lt hip and rt knee, prostate cancer recently dx has'nt had nay sx or radiation or chemo as of yet."hypoglycemia".dwayne inguinal hernia, stated has lost 50 pouns since september 2014, uti Last Myocardial Infarction Date:: 2012 History of Any Multi-Drug Resistant Organisms: None Reported Past Surgical History: Back Surgery, Heart Catheterization With Stent, Joint Replacement, Orthopedic Surgery Additional Past Surgical History / Comment(s): 2 STENTS, CATARACT, LASER EYE SX, FUSION TO BACK, RT KNEE REPLACEMENT X2, LT HAND PINKY FINGER SX, "lt hip surgery with metal" POPPED OUT A FEW TIMES & HAD TO BE POPPED BACK IN, PAIN CLINIC PROCEDURE, COLONOSCOPY Past Anesthesia/Blood Transfusion Reactions: No Reported Reaction Date of Last Stent Placement:: 2012 Past Psychological History: Anxiety, Depression Smoking Status: Current every day smoker Past Alcohol Use History: None Reported Past Drug Use History: None Reported - Past Family History Daughter(s) Family Medical History: No Reported History Additional Family Medical History / Comment(s): left leg fx x3; right leg fx x1. left wrist fx x2; breast reduction sx; hyst; cystocele; tubal; anxiety, depression Mother Family Medical History: Myocardial Infarction (NH) Additional Family Medical History / Comment(s): 1979- Father Additional Family Medical History / Comment(s): WITH GANGRENE @ AGE 65 General Exam Limitations: no limitations Course Vital Signs 08/28/20 08/28/20 17:20 19:02 Temperature 97.5 F L Pulse Rate 62 68 Respiratory 20 20 Rate Blood Pressure 116/56 132/76 O2 Sat by Pulse 98 93 L Oximetry Medical Decision Making - Lab Data Result diagrams: 08/28/20 18:12 08/28/20 18:12 Lab Results 08/28/20 08/28/20 Range/Units 18:12 18:12 WBC 7.5 (3.8-10.6) k/uL RBC 3.97 L (4.30-5.90) m/uL Hgb 13.4 (13.0-17.5) gm/dL Hct 39.3 (39.0-53.0) % MCV 99.1 (80.0-100.0) fL MCH 33.9 (25.0-35.0) pg MCHC 34.2 (31.0-37.0) g/dL RDW 13.8 (11.5-15.5) % Plt Count 189 (150-450) k/uL MPV 8.1 Neutrophils % 72 % Lymphocytes % 15 % Monocytes % 7 % Eosinophils % 4 % Basophils % 0 % Neutrophils # 5.4 (1.3-7.7) k/uL Lymphocytes # 1.1 (1.0-4.8) k/uL Monocytes # 0.5 (0-1.0) k/uL Eosinophils # 0.3 (0-0.7) k/uL Basophils # 0.0 (0-0.2) k/uL Sodium 140 (137-145) mmol/L Potassium 4.4 (3.5-5.1) mmol/L Chloride 102 (98-107) mmol/L Carbon Dioxide 31 H (22-30) mmol/L Anion Gap 7 mmol/L BUN 29 H (9-20) mg/dL Creatinine 1.21 (0.66-1.25) mg/dL Est GFR (CKD-EPI)AfAm 64 (>60 ml/min/1.73 sqM) Est GFR (CKD-EPI)NonAf 56 (>60 ml/min/1.73 sqM) Glucose 97 (74-99) mg/dL Calcium 8.9 (8.4-10.2) mg/dL Disposition Clinical Impression: Fall, Head contusion Disposition: HOME SELF-CARE Condition: Good Instructions (If sedation given, give patient instructions): Fall Prevention for Older Adults (ED) Is patient prescribed a controlled substance at d/c from ED?: No Referrals: Jonah Encarnacion MD [Primary Care Provider] - 1-2 days Time of Disposition: 19:37
[2020-08-28 18:21] LABS: Basophils % (A) 0 %; Eosinophils # (A) 0.3 k/uL (0-0.7); Eosinophils % (A) 4 %; HCT 39.3 % (39.0-53.0); HGB 13.4 gm/dL (13.0-17.5); Lymphocytes # (A) 1.1 k/uL (1.0-4.8); Lymphocytes % (A) 15 %; MCH 33.9 pg (25.0-35.0); MCHC 34.2 g/dL (31.0-37.0); MCV 99.1 fL (80.0-100.0); Mean Platelet Volume 8.1; Monocytes # (A) 0.5 k/uL (0-1.0); Monocytes % (A) 7 %; Neutrophils # (A) 5.4 k/uL (1.3-7.7); Neutrophils % (A) 72 %; Platelet Count 189 k/uL (150-450); RBC 3.97 m/uL (4.30-5.90); RDW 13.8 % (11.5-15.5); WBC 7.5 k/uL (3.8-10.6)
[2020-08-28 18:29] LABS: Calcium 8.9 mg/dL (8.4-10.2); Potassium 4.4 mmol/L (3.5-5.1)
--- NOTE | 2020-08-28 18:56 | CT ---
EXAMINATION TYPE: CT brain andres valentin con DATE OF EXAM: 08/28/2020 COMPARISON: None HISTORY: Dizziness, fall, injury to back of head. CT DLP: 1297.4 mGycm Automated exposure control for dose reduction was used. Exam performed without contrast. There is cerebral cortical atrophy. There is no mass effect nor midline shift. There is no sign of in tracranial hemorrhage. The calvarium is intact. There is lower cervical kyphotic mild deformity. There is degenerative disc space narrowing in the lo wer cervical spine at C5-6 and C6-7. The posterior elements are intact. There is multilevel facet art hropathy. There is no evidence of a fracture. There is normal aeration of the mastoid sinuses. The oc cipital bone is intact. IMPRESSION: Cerebral atrophy. No acute intracranial abnormality. Spondylotic changes in the lower cervical spine. No fracture seen.
[2020-08-28 19:05] VITALS: BP 132/76; PULSE 68
--- NOTE | 2020-08-28 19:28 | XR ---
EXAMINATION TYPE: XR chest 1V portable DATE OF EXAM: 08/28/2020 COMPARISON: 01/26/2019 HISTORY: Fall. Chest pain. TECHNIQUE: Single view FINDINGS: There is no heart failure nor confluent pneumonic infiltrate. There is left axillary pacema ker. There are no hilar masses. Costophrenic angles are clear. IMPRESSION: No active cardiac pulmonary disease. Minimal fibrotic changes. There is improved inspirat ion compared to old exam. No pneumothorax. No rib fracture seen.
--- NOTE | 2020-08-28 19:29 | XR ---
EXAMINATION TYPE: XR pelvis AP view DATE OF EXAM: 08/28/2020 COMPARISON: None HISTORY: Fall. Pain. TECHNIQUE: 2 views FINDINGS: The pelvic ring appears intact. There is left hip prosthesis. Proximal right femur is intac t. Sacroiliac joints are intact. IMPRESSION: No acute abnormality of the pelvis. No fracture seen.
== END 2020-08-28 19:50 | disposition home or self-care (01) ==
LOC: EC 17:03
DX: S00.93XA Contusion of unspecified part of head, initial encounter (principal); E78.5 Hyperlipidemia, unspecified; F17.200 Nicotine dependence, unspecified, uncomplicated; F32.9 Major depressive disorder, single episode, unspecified; F41.9 Anxiety disorder, unspecified; I10 Essential (primary) hypertension; I25.10 Atherosclerotic heart disease of native coronary artery without angina pectoris; I25.2 Old myocardial infarction; J44.9 Chronic obstructive pulmonary disease, unspecified; K21.9 Gastro-esophageal reflux disease without esophagitis; Z79.82 Long term (current) use of aspirin; Z79.899 Other long term (current) drug therapy; Z85.46 Personal history of malignant neoplasm of prostate; Z88.0 Allergy status to penicillin; W01.0XXA Fall on same level from slipping, tripping and stumbling without subsequent striking against object, initial encounter
CPT/HCPCS: 36415; 70450; 71045; 72125; 72170; 80048; 85025; 93005; 99284

== ENCOUNTER 2020-12-07 16:01 | Inpatient (IN) | payer MEDICARE, OTHER ==
[2020-12-07] MEDS ORDERED: SODIUM CHLORIDE 0.9% 500 ML 500 ML IV STA (16:45)
[2020-12-07 18:56] LABS: Basophils % (A) 0 %; Eosinophils # (A) 0.2 k/uL (0-0.7); Eosinophils % (A) 3 %; HCT 36.9 % (39.0-53.0); HGB 12.6 gm/dL (13.0-17.5); Lymphocytes # (A) 0.8 k/uL (1.0-4.8); Lymphocytes % (A) 12 %; MCH 33.1 pg (25.0-35.0); MCV 97.2 fL (80.0-100.0); Mean Platelet Volume 7.9; Monocytes # (A) 0.4 k/uL (0-1.0); Monocytes % (A) 6 %; Neutrophils # (A) 5.4 k/uL (1.3-7.7); Neutrophils % (A) 78 %; Platelet Count 168 k/uL (150-450); RDW 13.1 % (11.5-15.5); WBC 6.9 k/uL (3.8-10.6)
[2020-12-07 19:04] LABS: Albumin 4.2 g/dL (3.5-5.0); Calcium 9.2 mg/dL (8.4-10.2); Partial Thromboplastin Time 24.7 sec (22.0-30.0); Potassium 4.9 mmol/L (3.5-5.1); Prothrombin Time 10.7 sec (9.0-12.0); Total Bilirubin 0.2 mg/dL (0.2-1.3); Total Protein 7.2 g/dL (6.3-8.2)
--- NOTE | 2020-12-07 19:07 | XR ---
EXAMINATION: XR chest 2V DATE AND TIME: 12/07/2020 6:14 PM CLINICAL INDICATION: Post fall, Weakness TECHNIQUE: Departmental protocol COMPARISON: 08/28/2020 FINDINGS: Dual-lead cardiac pacemaker appears intact. EKG leads noted. The lungs are clear. The pleural spaces are negative. The cardiac silhouette is mild-moderately enlarged, unchanged. The remainder of the mediastinal silho uette is unremarkable. The skeletal structures and soft tissues are negative for acute findings. IMPRESSION: NO ACUTE PROCESS.
--- NOTE | 2020-12-07 19:10 | ED ---
Weakness HPI - General Chief complaint: Weakness Stated complaint: Weakness Time Seen by Provider: 12/07/20 16:40 Source: patient, EMS, old records reviewed Mode of arrival: EMS Limitations: physical limitation - History of Present Illness Initial comments: Patient is an 80-year-old male with multiple comorbidities including heart disease, hypertension, COPD, presenting to the emergency department via EMS over complaints of not being able to get up from the toilet. Patient states he normally uses a walker to get around. He states this morning and all midafternoon he was feeling okay, he went to the bathroom, sat down and was unable to get up on his own. He had called EMS for assistance. He feels like his legs are weak and heavy feeling. He does have history of left hip surgery, knee surgeries, he normally has some pains in these areas. He states he has fallen twice in the last few days, he did not hit his head, he is not on blood thinners. He is just complaining of some general weakness of his lower legs. He denies any fevers or chills, no chest pain or shortness of breath, no abdominal pain, no nausea or vomiting. He has no further complaints at this time. Upon arrival to the ER, his vitals are stable. - Related Data Home Medications Medication Instructions Recorded Confirmed ALPRAZolam [Xanax] 0.5 mg PO BID PRN 12/03/13 12/07/20 Nitroglycerin Sl Tabs [Nitrostat] 0.4 mg SL Q5M PRN 12/03/13 12/07/20 Ergocalciferol [Vitamin D2 50,000 unit PO MO 02/22/16 12/07/20 (DRISDOL)] Aspirin [Adult Low Dose Aspirin EC] 81 mg PO DAILY 01/26/19 12/07/20 Divalproex Sodium [Depakote ER] 250 mg PO DAILY 01/26/19 12/07/20 HYDROcodone/APAP 7.5-325MG [[place] 1 tab PO QID PRN 01/26/19 12/07/20 7.5-325] Sertraline [Zoloft] 100 mg PO DAILY 01/26/19 12/07/20 Tamsulosin [Flomax] 0.4 mg PO W/SUPPER 01/26/19 12/07/20 Albuterol Nebulized [Ventolin 2.5 mg INHALATION RT-Q4H PRN 12/07/20 12/07/20 Nebulized] Atorvastatin Calcium [Lipitor] 20 mg PO HS 12/07/20 12/07/20 Budesonide [Pulmicort] 0.5 mg INHALATION RT-BID PRN 12/07/20 12/07/20 Sertraline [Zoloft] 50 mg PO HS 12/07/20 12/07/20 rOPINIRole HCL [Requip] 0.25 mg PO DAILY 12/07/20 12/07/20 Allergies Allergy/AdvReac Type Severity Reaction Status Date / Time Penicillins Allergy Rash/Hives Verified 12/07/20 18:23 Review of Systems ROS Statement: Those systems with pertinent positive or pertinent negative responses have been documented in the HPI. ROS Other: All systems not noted in ROS Statement are negative. Past Medical History Past Medical History: Coronary Artery Disease (CAD), Cancer, Chest Pain / Angina, COPD, Eye Disorder, GERD/Reflux, Hyperlipidemia, Hypertension, Myocardial Infarction ([place]), Osteoarthritis (OA), Pneumonia, Prostate Disorder Additional Past Medical History / Comment(s): INCONT OF URINE- USES DEPENDS, GLAUCOMA- WEARS GLASSES TO DRIVE ONLY, pain lt hip and rt knee, prostate cancer recently dx has'nt had nay sx or radiation or chemo as of yet."hypoglycemia".[place] inguinal hernia, stated has lost 50 pouns since september 2014, uti Last Myocardial Infarction Date:: 2012 History of Any Multi-Drug Resistant Organisms: None Reported Past Surgical History: Back Surgery, Heart Catheterization With Stent, Joint Replacement, Orthopedic Surgery Additional Past Surgical History / Comment(s): 2 STENTS, CATARACT, LASER EYE SX, FUSION TO BACK, RT KNEE REPLACEMENT X2, LT HAND PINKY FINGER SX, "lt hip surgery with metal" POPPED OUT A FEW TIMES & HAD TO BE POPPED BACK IN, PAIN CLINIC PROCEDURE, COLONOSCOPY Past Anesthesia/Blood Transfusion Reactions: No Reported Reaction Date of Last Stent Placement:: 2012 Past Psychological History: Anxiety, Depression Smoking Status: Current every day smoker Past Alcohol Use History: None Reported Past Drug Use History: None Reported - Past Family History Daughter(s) Family Medical History: No Reported History Additional Family Medical History / Comment(s): left leg fx x3; right leg fx x1. left wrist fx x2; breast reduction sx; hyst; cystocele; tubal; anxiety, depression Mother Family Medical History: Myocardial Infarction ([place]) Additional Family Medical History / Comment(s): 1979- Father Additional Family Medical History / Comment(s): WITH GANGRENE @ AGE 65 General Exam - General Exam Comments Initial Comments: GENERAL: Patient is well-developed and well-nourished. Patient is nontoxic and in no acute distress. HEAD: Atraumatic, normocephalic. EYES: Pupils equal round and reactive to light, extraocular movements intact, sclera anicteric, conjunctiva are normal. Eyelids were unremarkable. ENT: TMs normal, nares patent, oropharynx clear without exudates. Moist mucous membranes. NECK: Normal range of motion, supple without lymphadenopathy or JVD. LUNGS: Unlabored respirations. Breath sounds clear to auscultation bilaterally and equal. No wheezes rales or rhonchi. HEART: Regular rate and rhythm without murmurs, rubs or gallops. ABDOMEN: Soft, nontender, normoactive bowel sounds. No guarding, no rebound. No masses appreciated. : Deferred MUSCULOSKELETAL: Normal extremities with adequate strength and normal range of motion, no pitting or edema. No clubbing or cyanosis. NEUROLOGICAL: Patient is alert and oriented x 3. Motor and sensory are also intact. Cranial nerves II through XII grossly intact. Symmetrical smile. Normal speech. PSYCH: Normal mood, normal affect. SKIN: Warm, Dry, normal turgor, no rashes or lesions noted. Limitations: physical limitation Course Vital Signs 12/07/20 16:03 Temperature 97.2 F L Pulse Rate 66 Respiratory 16 Rate Blood Pressure 116/67 O2 Sat by Pulse 94 L Oximetry EKG Findings - EKG Comments: EKG Findings:: Normal sinus rhythm with sinus arrhythmia, normal ECG, no signs of acute process. Similar to previous on 08/28/2020. Phenergan sugar rate 66, LA interval 208, QT 392. Medical Decision Making - Medical Decision Making Patient is an 80-year-old male with multiple quantities including heart disease, presenting via EMS with complaints of generalized lower leg weakness. He was unable to get up from the toilet today. He did have a fall yesterday, did not hit his head, is not on thinners. His vitals are stable, has been afebrile. His exam shows no acute findings, no acute neuro deficits. Labs so no acute process, creatinine is 1.34, troponin is normal, BNP is normal, chest x-ray shows no acute process. Urine analysis is still pending at this time. I did attempt to ambulate with the patient however he is very shaky when standing, can barely take one step without feeling weak and feeling like he's got a fall. Patient will be admitted for weakness, unable to ambulate. He is in agreement with this plan of care. Case discussed with Dr. Baeza. Patient accepted by Dr. Garcia. - Lab Data Result diagrams: 12/07/20 17:43 12/07/20 17:43 Lab Results 12/07/20 12/07/20 12/07/20 Range/Units 17:43 17:43 17:43 WBC 6.9 (3.8-10.6) k/uL RBC 3.80 L (4.30-5.90) m/uL Hgb 12.6 L (13.0-17.5) gm/dL Hct 36.9 L (39.0-53.0) % MCV 97.2 (80.0-100.0) fL MCH 33.1 (25.0-35.0) pg MCHC 34.0 (31.0-37.0) g/dL RDW 13.1 (11.5-15.5) % Plt Count 168 (150-450) k/uL MPV 7.9 Neutrophils % 78 % Lymphocytes % 12 % Monocytes % 6 % Eosinophils % 3 % Basophils % 0 % Neutrophils # 5.4 (1.3-7.7) k/uL Lymphocytes # 0.8 L (1.0-4.8) k/uL Monocytes # 0.4 (0-1.0) k/uL Eosinophils # 0.2 (0-0.7) k/uL Basophils # 0.0 (0-0.2) k/uL PT 10.7 (9.0-12.0) sec INR 1.0 (<1.2) APTT 24.7 (22.0-30.0) sec Sodium 141 (137-145) mmol/L Potassium 4.9 (3.5-5.1) mmol/L Chloride 102 (98-107) mmol/L Carbon Dioxide 30 (22-30) mmol/L Anion Gap 9 mmol/L BUN 39 H (9-20) mg/dL Creatinine 1.34 H (0.66-1.25) mg/dL Est GFR (CKD-EPI)AfAm 57 (>60 ml/min/1.73 sqM) Est GFR (CKD-EPI)NonAf 49 (>60 ml/min/1.73 sqM) Glucose 97 (74-99) mg/dL Plasma Lactic Acid Kenny (0.7-2.0) mmol/L Calcium 9.2 (8.4-10.2) mg/dL Magnesium 2.0 (1.6-2.3) mg/dL Total Bilirubin 0.2 (0.2-1.3) mg/dL AST 23 (17-59) U/L ALT 6 (4-49) U/L Alkaline Phosphatase 80 (38-126) U/L Troponin I (0.000-0.034) ng/mL NT-Pro-B Natriuret Pep pg/mL Total Protein 7.2 (6.3-8.2) g/dL Albumin 4.2 (3.5-5.0) g/dL 12/07/20 12/07/20 12/07/20 Range/Units 17:43 17:43 17:43 WBC (3.8-10.6) k/uL RBC (4.30-5.90) m/uL Hgb (13.0-17.5) gm/dL Hct (39.0-53.0) % MCV (80.0-100.0) fL MCH (25.0-35.0) pg MCHC (31.0-37.0) g/dL RDW (11.5-15.5) % Plt Count (150-450) k/uL MPV Neutrophils % % Lymphocytes % % Monocytes % % Eosinophils % % Basophils % % Neutrophils # (1.3-7.7) k/uL Lymphocytes # (1.0-4.8) k/uL Monocytes # (0-1.0) k/uL Eosinophils # (0-0.7) k/uL Basophils # (0-0.2) k/uL PT (9.0-12.0) sec INR (<1.2) APTT (22.0-30.0) sec Sodium (137-145) mmol/L Potassium (3.5-5.1) mmol/L Chloride (98-107) mmol/L Carbon Dioxide (22-30) mmol/L Anion Gap mmol/L BUN (9-20) mg/dL Creatinine (0.66-1.25) mg/dL Est GFR (CKD-EPI)AfAm (>60 ml/min/1.73 sqM) Est GFR (CKD-EPI)NonAf (>60 ml/min/1.73 sqM) Glucose (74-99) mg/dL Plasma Lactic Acid Kenny 1.3 (0.7-2.0) mmol/L Calcium (8.4-10.2) mg/dL Magnesium (1.6-2.3) mg/dL Total Bilirubin (0.2-1.3) mg/dL AST (17-59) U/L ALT (4-49) U/L Alkaline Phosphatase (38-126) U/L Troponin I <0.012 (0.000-0.034) ng/mL NT-Pro-B Natriuret Pep 164 pg/mL Total Protein (6.3-8.2) g/dL Albumin (3.5-5.0) g/dL Disposition Clinical Impression: Weakness, Unable to ambulate Disposition: ADMITTED IP TO [facility] Condition: Stable Is patient prescribed a controlled substance at d/c from ED?: No Referrals: Jonah Encarnacion MD [Primary Care Provider] - 1-2 days Decision Date: 12/07/20 Decision Time: 19:46
[2020-12-07] MEDS ORDERED: NALOXONE 0.4 MG/ML 1 ML VIAL IV PRN (19:43)
[2020-12-07] MEDS ORDERED: ACETAMINOPHEN TAB 325 MG TAB PO PRN (19:43)
[2020-12-07 20:14] LABS: Amorphous Sediment,Urine Rare /hpf; Appearance,Urine Clear (Clear); Bacteria,Urine Rare /hpf; Bilirubin,Urine Negative (Negative); Blood,Urine Small (Negative); Color,Urine Yellow; Glucose,Urine (UA) Negative (Negative); Hyaline Casts,Urine 1 /lpf (0-2); Ketones,Urine Negative (Negative); Leukocyte Esterase,Urine Large (Negative); Mucus,Urine Rare /hpf; Nitrite,Urine Negative (Negative); Protein,Urine 1+ (Negative); RBC,Urine 13 /hpf (0-5); Specific Gravity,Urine 1.017 (1.001-1.035); Squamous Epithelial Cell,Urine <1 /hpf (0-4); Urobilinogen,Urine <2.0 mg/dL (<2.0); WBC,Urine 87 /hpf (0-5)
[2020-12-07] MEDS: SODIUM CHLORIDE 0.9% 1,000 ML IV SCH (21:00)
[2020-12-07 22:43] LABS: Glucose,Whole Blood 128 mg/dL (75-99)
[2020-12-08] MEDS ORDERED: BUDESONIDE 0.5 MG/2 ML NEBU INHALATION PRN (10:22)
[2020-12-08] MEDS ORDERED: NITROGLYCERIN SL TABS 0.4 MG TAB SUBLINGUAL PRN (10:22)
[2020-12-08] MEDS ORDERED: ALBUTEROL NEBULIZED 2.5 MG/3 ML INHALATION PRN (10:22)
[2020-12-08] MEDS: SODIUM CHLORIDE 0.9% 1,000 ML IV SCH (11:28)
[2020-12-08] MEDS: ASPIRIN 81 MG PO SCH (11:28)
[2020-12-08] MEDS: DIVALPROEX ER 250 MG TAB.ER.24H PO SCH (11:28)
[2020-12-08] MEDS: ENOXAPARIN 40 MG/0.4 ML SYRINGE SQ SCH (11:28)
[2020-12-08] MEDS: SERTRALINE 100 MG TAB PO SCH (11:28)
[2020-12-08] MEDS: ALPRAZolam 0.5 MG TAB PO PRN (11:32)
[2020-12-08 12:21] LABS: African American GFR (CKD) 64 (>60 ml/min/1.73 sqM); Anion Gap 8 mmol/L; Blood Urea Nitrogen 36 mg/dL (9-20); Calcium 9.1 mg/dL (8.4-10.2); Carbon Dioxide 27 mmol/L (22-30); Chloride 106 mmol/L (98-107); Glucose 94 mg/dL (74-99); Non-African American GFR(CKD) 56 (>60 ml/min/1.73 sqM); Potassium 4.6 mmol/L (3.5-5.1); Sodium 141 mmol/L (137-145)
--- NOTE | 2020-12-08 15:08 | P.HPIM ---
History of Present Illness H&P Date: 12/08/20 Chief Complaint: Unable to get off the toilet History of presenting complaint: This is a pleasant 80-year-old patient, follows with visiting physicians Dr. Encarnacion, chronic stable medical conditions include coronary artery disease, COPD, GERD, hypertension, hyperlipidemia, arthritis, urinary incontinence prostate cancer. Patient is a smoker. Patient presents for a multitude of symptoms but mainly presentation was that is not able to get off the toilet seat. He feels his appetite has gone down. Decreased fluid intake. No change in bowel pattern. No fever no chills. Tired rundown. At the baseline uses a Rollator Review of systems: GEN.: Tired, decreased appetite EYES: None HEENT: None NECK: None RESPIRATORY: None CARDIOVASCULAR: None GASTROINTESTINAL: None GENITOURINARY: None MUSCULOSKELETAL: Joint pains LYMPHATICS: None HEMATOLOGICAL: None PSYCHIATRY: None NEUROLOGICAL: Uses a Rollator Past medical history to include: Coronary artery disease, COPD, GERD, hypertension, hyperlipidemia, prostatitis, urinary incontinence, prostate cancer pacemaker Social history: Lives at [facility] with his ex- Lety. Uses a ventilator. Patient has been smoking since the age of 13, currently down to half a pack a day. No alcohol. Physical examination: VITAL SIGNS: 97.2, 66, 16, 116/67, 94% on room air GENERAL: BMI 21.8, sitting up in a chair, awake tired. EYES: Pupils equal. Conjunctiva normal. HEENT: External appearance of nose and ears normal, oral cavity grossly normal. NECK: JVD not raised; masses not palpable. HEART: First and second heart sounds are normal; no edema. LUNGS: Respiratory rate normal; clear to auscultation. MUSCULAR skeletal: Evidence of OA ABDOMEN: Soft, nontender, liver spleen not palpable, no masses palpable. PSYCH: Alert and oriented x3; mood and affect normal. NEUROLOGICAL: Cranial nerves grossly intact; no facial asymmetry, power and sensation grossly intact. LYMPHATICS: No lymph nodes palpable in the axilla and neck INVESTIGATIONS, reviewed in the clinical context: Today: Creatinine 1.2 Admission labs: WBC 6.9 hemoglobin 12.6 platelets 168 potassium 4.9 BUN 39 creatinine 1.34 UA positive for leukoesterase, WBC EKG tracing personally reviewed by me-normal sinus rhythm Chest x-ray film personally reviewed by me-no obvious infiltrate Previous labs: Creatinine 1.21 on 08/28/2020 Assessment and plan: -Acute on chronic medical debility likely from dehydration from decreased oral intake IV fluids -Clinical dehydration IV fluids -Chronic myopathy, multifactorial with some proximal muscle weakness PTOT -Coronary artery disease but history of stent On Lipitor, aspirin -COPD in a current smoker Continue Ventolin -GERD Add Pepcid -Hyperlipidemia Lipitor -Primary osteoarthritis Pain medications as needed -Chronic daily urinary stress incontinence -BPH Flomax -Prostate cancer Follow-up with his oncologist outpatient -Permanent pacemaker On telemetry -Chronic nicotine use patient is a cigarette smoker Nicotine patch -Anxiety depression not otherwise specified Continue with Zoloft -Restless leg syndrome On Requip Care was discussed with the patient. PTOT. IV fluids. Increase activity as tolerated. Past Medical History Past Medical History: Coronary Artery Disease (CAD), Cancer, Chest Pain / Angina, COPD, Eye Disorder, GERD/Reflux, Hyperlipidemia, Hypertension, Myocardial Infarction (AK), Osteoarthritis (OA), Pneumonia, Prostate Disorder Additional Past Medical History / Comment(s): INCONT OF URINE- USES DEPENDS, GLAUCOMA- WEARS GLASSES TO DRIVE ONLY, pain lt hip and rt knee, prostate cancer recently dx has'nt had nay sx or radiation or chemo as of yet."hypoglycemia".dwayne inguinal hernia, stated has lost 50 pouns since september 2014, uti Last Myocardial Infarction Date:: 2012 History of Any Multi-Drug Resistant Organisms: None Reported Past Surgical History: Back Surgery, Heart Catheterization With Stent, Joint Replacement, Orthopedic Surgery, Pacemaker Additional Past Surgical History / Comment(s): 2 STENTS, CATARACT, LASER EYE SX, FUSION TO BACK, RT KNEE REPLACEMENT X2, LT HAND PINKY FINGER SX, "lt hip surgery with metal" POPPED OUT A FEW TIMES & HAD TO BE POPPED BACK IN, PAIN CLINIC P ROCEDURE, COLONOSCOPY Past Anesthesia/Blood Transfusion Reactions: No Reported Reaction Date of Last Stent Placement:: 2012 Type of Cardiac Device: Unknown Device Placement Date:: 2012 Past Psychological History: Anxiety, Depression Additional Psychological History / Comment(s): pt lives at [facility] WITH HIS EX LETY,uses a rolling walker when up, still drives occ. pt has some depression over medical problems but denies any thoughts of wanting to harm self.no hopelessness. Smoking Status: Current every day smoker Past Alcohol Use History: None Reported Additional Past Alcohol Use History / Comment(s): STARTED SMOKING AGE 13(1956) SMOKES LESS THAN 1/2 PPD, PT WAS GIVEN SMOKING CESSATION BOOKLET LAST ADMIT,LETY STATED HE HAS IT AT HOME Past Drug Use History: None Reported - Past Family History Daughter(s) Family Medical History: No Reported History Additional Family Medical History / Comment(s): left leg fx x3; right leg fx x1. left wrist fx x2; breast reduction sx; hyst; cystocele; tubal; anxiety, depression Mother Family Medical History: Myocardial Infarction (AK) Additional Family Medical History / Comment(s): 1979- Father Additional Family Medical History / Comment(s): WITH GANGRENE @ AGE 65 Medications and Allergies Home Medications Medication Instructions Recorded Confirmed Type ALPRAZolam [Xanax] 0.5 mg PO BID PRN 12/03/13 12/07/20 History Nitroglycerin Sl Tabs [Nitrostat] 0.4 mg SL Q5M PRN 12/03/13 12/07/20 History Ergocalciferol [Vitamin D2 50,000 unit PO MO 02/22/16 12/07/20 History (DRISDOL)] Aspirin [Adult Low Dose Aspirin EC] 81 mg PO DAILY 01/26/19 12/07/20 History Divalproex Sodium [Depakote ER] 250 mg PO DAILY 01/26/19 12/07/20 History HYDROcodone/APAP 7.5-325MG [Norton 1 tab PO QID PRN 01/26/19 12/07/20 History 7.5-325] Sertraline [Zoloft] 100 mg PO DAILY 01/26/19 12/07/20 History Tamsulosin [Flomax] 0.4 mg PO W/SUPPER 01/26/19 12/07/20 History Albuterol Nebulized [Ventolin 2.5 mg INHALATION RT-Q4H PRN 12/07/20 12/07/20 History Nebulized] Atorvastatin Calcium [Lipitor] 20 mg PO HS 12/07/20 12/07/20 History Budesonide [Pulmicort] 0.5 mg INHALATION RT-BID PRN 12/07/20 12/07/20 History Sertraline [Zoloft] 50 mg PO HS 12/07/20 12/07/20 History rOPINIRole HCL [Requip] 0.25 mg PO DAILY 12/07/20 12/07/20 History Allergies Allergy/AdvReac Type Severity Reaction Status Date / Time Penicillins Allergy Rash/Hives Verified 12/07/20 18:23 Physical Exam Vitals: Vital Signs Temp Pulse Pulse Resp BP BP Pulse Ox 12/08/20 04:45 98.6 F 64 20 116/68 95 12/07/20 22:35 98.5 F 60 20 112/47 95 12/07/20 16:03 97.2 F L 66 16 116/67 94 L Intake and Output 12/07/20 12/08/20 12/08/20 22:59 06:59 14:59 Intake Total 100 Balance 100 Intake: Oral 100 Other: Voiding Method Urinal Urinal Incontinent Incontinent # Voids 3 Weight 77.111 kg Results CBC & Chem 7: 12/07/20 17:43 12/08/20 11:25 Labs: Abnormal Lab Results - Last 24 Hours (Table) 12/07/20 12/07/20 12/07/20 Range/Units 17:43 17:43 17:43 RBC 3.80 L (4.30-5.90) m/uL Hgb 12.6 L (13.0-17.5) gm/dL Hct 36.9 L (39.0-53.0) % Lymphocytes # 0.8 L (1.0-4.8) k/uL BUN 39 H (9-20) mg/dL Creatinine 1.34 H (0.66-1.25) mg/dL POC Glucose (mg/dL) (75-99) mg/dL Urine Protein 1+ H (Negative) Urine Blood Small H (Negative) Ur Leukocyte Esterase Large H (Negative) Urine RBC 13 H (0-5) /hpf Urine WBC 87 H (0-5) /hpf Urine WBC Clumps Occasional H (None) /hpf Amorphous Sediment Rare H (None) /hpf Urine Bacteria Rare H (None) /hpf Urine Mucus Rare H (None) /hpf 12/07/20 Range/Units 22:42 RBC (4.30-5.90) m/uL Hgb (13.0-17.5) gm/dL Hct (39.0-53.0) % Lymphocytes # (1.0-4.8) k/uL BUN (9-20) mg/dL Creatinine (0.66-1.25) mg/dL POC Glucose (mg/dL) 128 H (75-99) mg/dL Urine Protein (Negative) Urine Blood (Negative) Ur Leukocyte Esterase (Negative) Urine RBC (0-5) /hpf Urine WBC (0-5) /hpf Urine WBC Clumps (None) /hpf Amorphous Sediment (None) /hpf Urine Bacteria (None) /hpf Urine Mucus (None) /hpf Thrombosis Risk Factor Assmnt - Choose All That Apply Any of the Below Risk Factors Present?: Yes Each Factor Represents 1 point: Medical pt on bed rest Other Risk Factors: Yes Each Risk Factor Represents 3 Points: Age 75 years or older Other congenital or acquired thrombophilia - If yes, enter type in comment: No Thrombosis Risk Factor Assessment Total Risk Factor Score: 4 Thrombosis Risk Factor Assessment Level: Moderate Risk
[2020-12-08] MEDS: TAMSULOSIN 0.4 MG CAP.ER.24H PO SCH (17:29)
[2020-12-08] MEDS: NICOTINE 14MG/24HR PATCH TRANSDERM SCH (17:29)
[2020-12-08] MEDS: FAMOTIDINE 20 MG TAB PO SCH (20:30)
[2020-12-08] MEDS: HYDROcodone/APAP 7.5-325MG 1 EACH TAB PO PRN (20:30)
[2020-12-08] MEDS: ATORVASTATIN 20 MG TAB PO SCH (20:31)
[2020-12-08] MEDS: SERTRALINE 50 MG TAB PO SCH (20:31)
[2020-12-09] MEDS: SODIUM CHLORIDE 0.9% 1,000 ML IV SCH ×2 (06:14→07:57)
[2020-12-09] MEDS: FAMOTIDINE 20 MG TAB PO SCH ×2 (07:58→21:22)
[2020-12-09] MEDS: DIVALPROEX ER 250 MG TAB.ER.24H PO SCH (07:58)
[2020-12-09] MEDS: ASPIRIN 81 MG PO SCH (07:58)
[2020-12-09] MEDS: ENOXAPARIN 40 MG/0.4 ML SYRINGE SQ SCH (07:58)
[2020-12-09] MEDS: SERTRALINE 100 MG TAB PO SCH (07:58)
[2020-12-09] MEDS: NICOTINE 14MG/24HR PATCH TRANSDERM SCH (08:03)
[2020-12-09] MEDS: HYDROcodone/APAP 7.5-325MG 1 EACH TAB PO PRN (14:41)
[2020-12-09] MEDS: TAMSULOSIN 0.4 MG CAP.ER.24H PO SCH (17:49)
--- NOTE | 2020-12-09 21:03 | P.PN ---
Progress Note - Text Progress Note Date: 12/09/20 Chief Complaint: Unable to get off the toilet History of presenting complaint: This is a pleasant 80-year-old patient, follows with visiting physicians Dr. Encarnacion, chronic stable medical conditions include coronary artery disease, COPD, GERD, hypertension, hyperlipidemia, arthritis, urinary incontinence prostate cancer. Patient is a smoker. Patient presents for a multitude of symptoms but mainly presentation was that is not able to get off the toilet seat. He feels his appetite has gone down. Decreased fluid intake. No change in bowel pattern. No fever no chills. Tired rundown. At the baseline uses a Rollator. Found to have dehydration. Myopathy. PTOT consulted. Today: Patient doing much better. Able to get up. at the bedside. Concerned about him coming home feeling weak. They want to try rehab if he qualifies. Review of systems: Was done for constitutional, cardiovascular, GI, pulmonary. relevant finding as above Active Medications Acetaminophen (Acetaminophen Tab 325 Mg Tab) 650 mg PO Q6HR PRN PRN Reason: Mild Pain or Fever > 100.5 Hydrocodone Bitart/Acetaminophen (Hydrocodone/Apap 7.5-325mg 1 Each Tab) 1 each PO QID PRN PRN Reason: Pain Last Admin: 12/09/20 14:41 Dose: 1 each Documented by: Albuterol Sulfate (Albuterol Nebulized 2.5 Mg/3 Ml) 2.5 mg INHALATION RT-Q4H PRN PRN Reason: Shortness Of Breath Alprazolam (Alprazolam 0.5 Mg Tab) 0.5 mg PO BID PRN PRN Reason: Anxiety Last Admin: 12/08/20 11:32 Dose: 0.5 mg Documented by: Aspirin (Aspirin 81 Mg) 81 mg PO DAILY [facility] Last Admin: 12/09/20 07:58 Dose: 81 mg Documented by: Atorvastatin Calcium (Atorvastatin 20 Mg Tab) 20 mg PO HS [facility] Last Admin: 12/08/20 20:31 Dose: 20 mg Documented by: Budesonide (Budesonide 0.5 Mg/2 Ml Nebu) 0.5 mg INHALATION RT-BID PRN PRN Reason: Shortness Of Breath Divalproex Sodium (Divalproex Er 250 Mg Tab.Er.24h) 250 mg PO DAILY [facility] Last Admin: 06/26/21 07:58 Dose: 250 mg Documented by: Enoxaparin Sodium (Enoxaparin 40 Mg/0.4 Ml Syringe) 40 mg SQ DAILY [facility] Last Admin: 12/09/20 07:58 Dose: 40 mg Documented by: Ergocalciferol (Ergocalciferol 1,250 Mcg (50,000 Iu) Capsule) 1,250 mcg PO MO [facility] Famotidine (Famotidine 20 Mg Tab) 20 mg PO BID [facility] Last Admin: 12/09/20 07:58 Dose: 20 mg Documented by: Sodium Chloride (Saline 0.9%) 1,000 mls @ 75 mls/hr IV .[id number] [facility] Last Admin: 12/09/20 07:57 Dose: 75 mls/hr Documented by: Ceftriaxone Sodium 1 gm/ (Sodium Chloride) 50 mls @ 100 mls/hr IVPB Q12HR [facility] Last Admin: 12/09/20 07:57 Dose: 100 mls/hr Documented by: Naloxone HCl (Naloxone 0.4 Mg/Ml 1 Ml Vial) 0.2 mg IV Q2M PRN PRN Reason: Opioid Reversal Nicotine (Nicotine 14mg/24hr Patch) 1 patch TRANSDERM DAILY [facility] Last Admin: 12/09/20 08:03 Dose: 1 patch Documented by: Nitroglycerin (Nitroglycerin Sl Tabs 0.4 Mg Tab) 0.4 mg SUBLINGUAL Q5M PRN PRN Reason: Chest Pain Ropinirole HCl (Ropinirole Hcl 0.25 Mg Tab) 0.25 mg PO DAILY [facility] Last Admin: 12/09/20 07:58 Dose: 0.25 mg Documented by: Sertraline HCl (Sertraline 100 Mg Tab) 100 mg PO DAILY [facility] Last Admin: 12/09/20 07:58 Dose: 100 mg Documented by: Sertraline HCl (Sertraline 50 Mg Tab) 50 mg PO HS [facility] Last Admin: 12/08/20 20:31 Dose: 50 mg Documented by: Tamsulosin HCl (Tamsulosin 0.4 Mg Cap.Er.24h) 0.4 mg PO W/SUPPER [facility] Last Admin: 12/09/20 17:49 Dose: 0.4 mg Documented by: Past medical history to include: Coronary artery disease, COPD, GERD, hypertension, hyperlipidemia, prostatitis, urinary incontinence, prostate cancer pacemaker Social history: Lives at [place] [facility] with his ex- Lety. Uses a ventilator. Patient has been smoking since the age of 13, currently down to half a pack a day. No alcohol. Physical examination: VITAL SIGNS: 98, 61, 18, 148/69, 94% on room air GENERAL: Laying in bed, comfortable EYES: Pupils equal. Conjunctiva normal. NECK: JVD not raised; masses not palpable. HEART: First and second heart sounds are normal; no edema. LUNGS: Respiratory rate normal; clear to auscultation. MUSCULAR skeletal: Evidence of OA ABDOMEN: Soft, nontender, liver spleen not palpable, no masses palpable. PSYCH: Alert and oriented x3; mood and affect normal. INVESTIGATIONS, reviewed in the clinical context: December 08: Creatinine 1.2 Admission labs: WBC 6.9 hemoglobin 12.6 platelets 168 potassium 4.9 BUN 39 creatinine 1.34 UA positive for leukoesterase, WBC EKG tracing personally reviewed by me-normal sinus rhythm Chest x-ray film personally reviewed by me-no obvious infiltrate Previous labs: Creatinine 1.21 on 08/28/2020 Assessment and plan: -Acute on chronic medical debility likely from dehydration from decreased oral intake IV fluids -Clinical dehydration IV fluids -Chronic myopathy, multifactorial with some proximal muscle weakness PTOT -Coronary artery disease but history of stent On Lipitor, aspirin -COPD in a current smoker Continue Ventolin -GERD Add Pepcid -Hyperlipidemia Lipitor -Primary osteoarthritis Pain medications as needed -Chronic daily urinary stress incontinence -BPH Flomax -Prostate cancer Follow-up with his oncologist outpatient -Permanent pacemaker On telemetry -Chronic nicotine use patient is a cigarette smoker Nicotine patch -Anxiety depression not otherwise specified Continue with Zoloft -Restless leg syndrome On Requip Had a lengthy discussion with the patient and . Pros and cons were discussed. About rehab. Patient like to try to rehab if he qualifies.. 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 Total time spent today about 40 minutes with over 20 minutes of discussion.
[2020-12-09] MEDS: ATORVASTATIN 20 MG TAB PO SCH (21:22)
[2020-12-09] MEDS: SERTRALINE 50 MG TAB PO SCH (21:22)
[2020-12-10] MEDS: SODIUM CHLORIDE 0.9% 1,000 ML IV SCH ×2 (06:23→17:10)
[2020-12-10] MEDS: ASPIRIN 81 MG PO SCH (08:13)
[2020-12-10] MEDS: NICOTINE 14MG/24HR PATCH TRANSDERM SCH (08:13)
[2020-12-10] MEDS: HYDROcodone/APAP 7.5-325MG 1 EACH TAB PO PRN (08:13)
[2020-12-10] MEDS: FAMOTIDINE 20 MG TAB PO SCH ×2 (08:13→21:14)
[2020-12-10] MEDS: SERTRALINE 100 MG TAB PO SCH (08:13)
[2020-12-10] MEDS: ENOXAPARIN 40 MG/0.4 ML SYRINGE SQ SCH (08:13)
[2020-12-10] MEDS: DIVALPROEX ER 250 MG TAB.ER.24H PO SCH (08:14)
--- NOTE | 2020-12-10 14:52 | P.PN ---
Progress Note - Text Progress Note Date: 12/10/20 Chief Complaint: Unable to get off the toilet History of presenting complaint: This is a pleasant 80-year-old patient, follows with visiting physicians Dr. Encarnacion, chronic stable medical conditions include coronary artery disease, COPD, GERD, hypertension, hyperlipidemia, arthritis, urinary incontinence prostate cancer. Patient is a smoker. Patient presents for a multitude of symptoms but mainly presentation was that is not able to get off the toilet seat. He feels his appetite has gone down. Decreased fluid intake. No change in bowel pattern. No fever no chills. Tired rundown. At the baseline uses a Rollator. Found to have dehydration. Myopathy. PTOT consulted. Given IV fluids. Today: Patient did better with IV fluids. Still feeling weak. Getting assessed for inpatient rehab. Oral intake fair Review of systems: Was done for constitutional, cardiovascular, GI, pulmonary. relevant finding as above Active Medications Acetaminophen (Acetaminophen Tab 325 Mg Tab) 650 mg PO Q6HR PRN PRN Reason: Mild Pain or Fever > 100.5 Hydrocodone Bitart/Acetaminophen (Hydrocodone/Apap 7.5-325mg 1 Each Tab) 1 each PO QID PRN PRN Reason: Pain Last Admin: 12/10/20 08:13 Dose: 1 each Documented by: Albuterol Sulfate (Albuterol Nebulized 2.5 Mg/3 Ml) 2.5 mg INHALATION RT-Q4H PRN PRN Reason: Shortness Of Breath Alprazolam (Alprazolam 0.5 Mg Tab) 0.5 mg PO BID PRN PRN Reason: Anxiety Last Admin: 12/08/20 11:32 Dose: 0.5 mg Documented by: Aspirin (Aspirin 81 Mg) 81 mg PO DAILY [facility] Last Admin: 12/10/20 08:13 Dose: 81 mg Documented by: Atorvastatin Calcium (Atorvastatin 20 Mg Tab) 20 mg PO HS [facility] Last Admin: 12/09/20 21:22 Dose: 20 mg Documented by: Budesonide (Budesonide 0.5 Mg/2 Ml Nebu) 0.5 mg INHALATION RT-BID PRN PRN Reason: Shortness Of Breath Divalproex Sodium (Divalproex Er 250 Mg Tab.Er.24h) 250 mg PO DAILY [facility] Last Admin: 12/10/20 08:14 Dose: 250 mg Documented by: Enoxaparin Sodium (Enoxaparin 40 Mg/0.4 Ml Syringe) 40 mg SQ DAILY [facility] Last Admin: 12/10/20 08:13 Dose: 40 mg Documented by: Ergocalciferol (Ergocalciferol 1,250 Mcg (50,000 Iu) Capsule) 1,250 mcg PO MO [facility] Famotidine (Famotidine 20 Mg Tab) 20 mg PO BID [facility] Last Admin: 12/10/20 08:13 Dose: 20 mg Documented by: Sodium Chloride (Saline 0.9%) 1,000 mls @ 75 mls/hr IV .[id number] [facility] Last Admin: 12/10/20 06:23 Dose: Not Given Documented by: Ceftriaxone Sodium 1 gm/ (Sodium Chloride) 50 mls @ 100 mls/hr IVPB Q12HR [facility] Last Admin: 12/10/20 10:16 Dose: 100 mls/hr Documented by: Naloxone HCl (Naloxone 0.4 Mg/Ml 1 Ml Vial) 0.2 mg IV Q2M PRN PRN Reason: Opioid Reversal Nicotine (Nicotine 14mg/24hr Patch) 1 patch TRANSDERM DAILY [facility] Last Admin: 12/10/20 08:13 Dose: 1 patch Documented by: Nitroglycerin (Nitroglycerin Sl Tabs 0.4 Mg Tab) 0.4 mg SUBLINGUAL Q5M PRN PRN Reason: Chest Pain Ropinirole HCl (Ropinirole Hcl 0.25 Mg Tab) 0.25 mg PO DAILY [facility] Last Admin: 12/10/20 08:14 Dose: 0.25 mg Documented by: Sertraline HCl (Sertraline 100 Mg Tab) 100 mg PO DAILY [facility] Last Admin: 12/10/20 08:13 Dose: 100 mg Documented by: Sertraline HCl (Sertraline 50 Mg Tab) 50 mg PO HS [facility] Last Admin: 12/09/20 21:22 Dose: 50 mg Documented by: Tamsulosin HCl (Tamsulosin 0.4 Mg Cap.Er.24h) 0.4 mg PO W/SUPPER [facility] Last Admin: 12/09/20 17:49 Dose: 0.4 mg Documented by: Past medical history to include: Coronary artery disease, COPD, GERD, hypertension, hyperlipidemia, prostatitis, urinary incontinence, prostate cancer pacemaker Social history: Lives at [facility] with his ex- Lety. Uses a ventilator. Patient has been smoking since the age of 13, currently down to half a pack a day. No alcohol. Physical examination: VITAL SIGNS: 96.8, 60, 20, 147/65, 98% room air GENERAL: Laying in bed, comfortable EYES: Pupils equal. Conjunctiva normal. NECK: JVD not raised; masses not palpable. HEART: First and second heart sounds are normal; no edema. LUNGS: Respiratory rate normal; clear to auscultation. MUSCULAR skeletal: Evidence of OA ABDOMEN: Soft, nontender, liver spleen not palpable, no masses palpable. PSYCH: Alert and oriented x3; mood and affect normal. INVESTIGATIONS, reviewed in the clinical context: December 08: Creatinine 1.2 Admission labs: WBC 6.9 hemoglobin 12.6 platelets 168 potassium 4.9 BUN 39 creatinine 1.34 UA positive for leukoesterase, WBC EKG tracing personally reviewed by me-normal sinus rhythm Chest x-ray film personally reviewed by me-no obvious infiltrate Previous labs: Creatinine 1.21 on 08/28/2020 Assessment and plan: -Acute on chronic medical debility likely from dehydration from decreased oral intake IV fluids now discontinued -Clinical dehydration IV fluids-discontinued -Chronic myopathy, multifactorial with some proximal muscle weakness PTOT -Coronary artery disease but history of stent On Lipitor, aspirin -COPD in a current smoker Continue Ventolin -GERD Add Pepcid -Hyperlipidemia Lipitor -Primary osteoarthritis Pain medications as needed -Chronic daily urinary stress incontinence -BPH Flomax -Prostate cancer Follow-up with his oncologist outpatient -Permanent pacemaker On telemetry -Chronic nicotine use patient is a cigarette smoker Nicotine patch -Anxiety depression not otherwise specified Continue with Zoloft -Restless leg syndrome On Requip Getting evaluated for rehab placement. Continue current medications. If accepted can go to the [facility] tomorrow.
[2020-12-10] MEDS: TAMSULOSIN 0.4 MG CAP.ER.24H PO SCH (17:10)
[2020-12-10] MEDS: ALPRAZolam 0.5 MG TAB PO PRN (17:12)
[2020-12-10] MEDS: SERTRALINE 50 MG TAB PO SCH (21:14)
[2020-12-10] MEDS: ATORVASTATIN 20 MG TAB PO SCH (21:14)
[2020-12-11] MEDS: SODIUM CHLORIDE 0.9% 1,000 ML IV SCH ×2 (04:04→07:28)
[2020-12-11 04:45] VITALS: RESP 18
[2020-12-11] MEDS: SERTRALINE 100 MG TAB PO SCH (07:18)
[2020-12-11] MEDS: ASPIRIN 81 MG PO SCH (07:18)
[2020-12-11] MEDS: NICOTINE 14MG/24HR PATCH TRANSDERM SCH (07:18)
[2020-12-11] MEDS: ENOXAPARIN 40 MG/0.4 ML SYRINGE SQ SCH (07:18)
[2020-12-11] MEDS: FAMOTIDINE 20 MG TAB PO SCH (07:18)
[2020-12-11] MEDS: HYDROcodone/APAP 7.5-325MG 1 EACH TAB PO PRN (07:21)
[2020-12-11] MEDS: DIVALPROEX ER 250 MG TAB.ER.24H PO SCH (07:23)
[2020-12-11] MEDS ORDERED: ERGOCALCIFEROL 1,250 MCG (50,000 IU) CAPSULE PO SCH (09:00)
--- NOTE | 2020-12-11 11:30 | CDI ---
Documentation Clarification Form Date: 12/11/2020 10:46:44 AM From: Macarena Jasmine RN, CCDS Admit Date: 12/09/2020 10:04:00 AM Patient Name: Reyes Morel Visit Number: [id number] Discharge Date: ATTENTION: The Clinical Documentation Specialists (CDI) and [facility] Coding Staff appreciate your assistance in clarifying documentation. Please respond to the clarification below the line at the bottom and electronically sign. The CDI & [facility] Coding staff will review the response and follow-up if needed. Please note: Queries are made part of the Legal Health Record. If you have any questions, please contact the author of this message via ITS. Dr. Josh Garcia Your patient has a creatinine of 1.34, BUN 29, GFR 49 on 12/07/20. Please clarify if there is an additional diagnosis and/or clinical significance related to this value. History/Risk Factors: Heart disease, Hypertension, COPD, Prostate Cancer Clinical indicators: 80-year-old female who present to ED on 12/07 with weakness of his lower legs. He has decreased fluid intake. 12/08 Progress note December 08: Creatinine 1.2 12/07 Vital signs: 116/67 66 17 97.2 94 % RA 12/07 Labs: BUN 39 CR 1.34, GFR 49 12/08 Labs: BUN 36 CR 1.21, GFR 56 Treatment: .9% NS @ 75 mls/hr. IV PT/OT Evaluation Is there an additional diagnosis and/or clinical significance related to the above lab result/information? [ ] Acute Kidney injury due to dehydration [ ] Acute on Chronic Kidney disease (Specify stage if known) [ ] No additional diagnosis/Not clinically significant [ ] Other, please specify [ ] Unable to determine (Template Last Revised: July 2020) Acute kidney injury possibly secondary to decreased oral intake and dehydration Signed By: <Electronically signed by Beatriz MONTOYA> 12/11/20 1411 MTDD
--- NOTE | 2020-12-11 11:55 | CDI ---
Documentation Clarification Form Date: 12/11/2020 11:31:04 AM From: Macarena Jasmine Phone: Admit Date: 12/09/2020 10:04:00 AM Patient Name: Reyes Morel Visit Number: [id number] Discharge Date: ATTENTION: The Clinical Documentation Specialists (CDI) and [facility] Coding Staff appreciate your assistance in clarifying documentation. Please respond to the clarification below the line at the bottom and electronically sign. The CDI & [facility] Coding staff will review the response and follow-up if needed. Please note: Queries are made part of the Legal Health Record. If you have any questions, please contact the author of this message via ITS. Dr. Josh Garcia On 12/07/20 per lab results this patient had a urine showing Large Leukocyte Esterase, Urine WBC 87 with ongoing treatment with Rocephin 1 gm Q12, starting on 12/08/20. Please clarify if there is an additional diagnosis and/or clinical significance related to this value and treatment. History/Risk Factors: Heart disease, Hypertension, COPD, Prostate Cancer, Urinary incontinence Clinical indicators: 80-year-old female who present to ED on 12/07 with weakness of his lower legs. He has decreased fluid intake. Vital signs: 12/08: 116/67 66 16 97.2 94 % on room air 12/07 Labs BUN 39, Creatinine 1.34 12/07 Urine: Positive for Leukocyte Esterase, WBC 12/07 Urine Culture: Apparent skin and genital terrell. Treatment: Rocephin 1 GM IVPB Q 12 hrs 12/08-12/11 .9% NS @ 75 mls/hr. IV 12/07-12/11 Is there an additional diagnosis and/or clinical significance related to the above lab result/information, treatment? [ ] Acute UTI POA, treated [ ] Acute UTI ruled out [ ] No additional diagnosis/Not clinically significant [ ] Other, please specify [ ] Unable to determine (Template Last Revised: July 2020) Acute urinary tract infection, present on admission Signed By: <Electronically signed by Beatriz MONTOYA> 12/11/20 1411 CARLA
[2020-12-11 11:56] VITALS: BP 114/66; PULSE 60; TEMP 97.9
--- NOTE | 2020-12-11 14:11 | P.DS ---
Providers Date of admission: 12/09/20 10:04 Expected date of discharge: 12/11/20 Attending physician: Josh Garcia Primary care physician: Jonah Encarnacion MD Hospital Course: Final diagnosis Acute urinary tract infection, present on admission Acute kidney injury possibly secondary to decreased oral intake and dehydration Acute on chronic medical debility possibly from dehydration and decreased oral intake Dehydration Chronic myopathy, multifactorial with some proximal muscle weakness Coronary artery disease with history of stents COPD, not in acute exacerbation Continued ongoing nicotine dependence GERD Hyperlipidemia Primary osteoarthritis Chronic urinary stress incontinence History of benign prostatic hypertrophy Prostate cancer Permanent pacemaker history Anxiety/depression Restless leg syndrome Discharge disposition Patient is being discharged in a stable condition with guarded prognosis to [facility] for continued PT/OT therapy. Patient will follow-up with Dr. Mathur/Nilda in the outpatient setting upon discharge. Patient will continue on oral Keflex 250 mg 4 times daily for the next 1 week and then may discontinue. Total time taken is greater than 35 minutes. Hospital course This is a 80-year-old male who was recently admitted with decreased oral intake, weakness, fatigue and was being closely monitored. Patient was found to have a possible acute urinary tract infection present on admission along with some acute kidney injury secondary to dehydration and was started on IV antibiotics in the form of ceftriaxone along with gentle IV hydration and showed some improvement. Recommend repeat labs of CBC and BMP to monitor white blood count and kidney and electrolyte functions. Patient's creatinine trending down and patient is producing urine. Patient will continue on Keflex 250 mg 4 times daily for the next 1 week and then may discontinue. Patient continues to be weak and high risk for falls and was seen and evaluated by PT/OT therapy recommending subacute rehab and will be going to [facility] today. Patient needs encouragement with oral intake and recommend regular diet along with ensures 3 times daily between meals. Currently no reports of chest pain, shortness of breath, or palpitations. Patient is afebrile. No reports of nausea or vomiting and patient is tolerating diet. Patient will be going to [facility] today. On exam vital signs are stable. Cardio S1, S2 are muffled. Respiratory system shows diminished breath sounds at the bases with no wheezing or rhonchi noted. Abdomen is soft and nontender. Nervous system shows diffuse weakness. Please refer to medication reconciliation sheet for a list of medications. Patient Condition at Discharge: Stable Plan - Discharge Summary New Discharge Prescriptions: New Budesonide-Formot 160-4.5 Mcg [Symbicort 160-4.5 Mcg Inhaler] 2 puff INHALATION BID #1 inhaler Acetaminophen Tab [Tylenol] 650 mg PO Q6HR PRN tab PRN Reason: Mild Pain Or Fever > 100.5 Nicotine 14Mg/24Hr Patch [Habitrol] 1 patch TRANSDERM DAILY #14 patch Famotidine [Pepcid] 20 mg PO BID #60 tab Cephalexin [Keflex] 250 mg PO Q6HR #28 cap Continue Nitroglycerin Sl Tabs [Nitrostat] 0.4 mg SL Q5M PRN PRN Reason: Chest Pain Ergocalciferol [Vitamin D2 (DRISDOL)] 50,000 unit PO MO Sertraline [Zoloft] 100 mg PO DAILY Tamsulosin [Flomax] 0.4 mg PO W/SUPPER Divalproex Sodium [Depakote ER] 250 mg PO DAILY Aspirin [Adult Low Dose Aspirin EC] 81 mg PO DAILY rOPINIRole HCL [Requip] 0.25 mg PO DAILY Sertraline [Zoloft] 50 mg PO HS HYDROcodone/APAP 7.5-325MG [[place] 7.5-325] 1 tab PO QID PRN #10 tab PRN Reason: Pain Albuterol Nebulized [Ventolin Nebulized] 2.5 mg INHALATION RT-Q4H PRN PRN Reason: Shortness Of Breath Atorvastatin Calcium [Lipitor] 20 mg PO HS ALPRAZolam [Xanax] 0.5 mg PO BID PRN #6 tab PRN Reason: Anxiety Discontinued Budesonide [Pulmicort] 0.5 mg INHALATION RT-BID PRN PRN Reason: Shortness Of Breath Discharge Medication List Nitroglycerin Sl Tabs [Nitrostat] 0.4 mg SL Q5M PRN 12/03/13 [History] Ergocalciferol [Vitamin D2 (DRISDOL)] 50,000 unit PO MO 02/22/16 [History] Aspirin [Adult Low Dose Aspirin EC] 81 mg PO DAILY 01/26/19 [History] Divalproex Sodium [Depakote ER] 250 mg PO DAILY 01/26/19 [History] Sertraline [Zoloft] 100 mg PO DAILY 01/26/19 [History] Tamsulosin [Flomax] 0.4 mg PO W/SUPPER 01/26/19 [History] Albuterol Nebulized [Ventolin Nebulized] 2.5 mg INHALATION RT-Q4H PRN 12/07/20 [History] Atorvastatin Calcium [Lipitor] 20 mg PO HS 12/07/20 [History] Sertraline [Zoloft] 50 mg PO HS 12/07/20 [History] rOPINIRole HCL [Requip] 0.25 mg PO DAILY 12/07/20 [History] Cephalexin [Keflex] 250 mg PO Q6HR #28 cap 12/09/20 [Rx] Famotidine [Pepcid] 20 mg PO BID #60 tab 12/09/20 [Rx] Nicotine 14Mg/24Hr Patch [Habitrol] 1 patch TRANSDERM DAILY #14 patch 12/09/20 [Rx] ALPRAZolam [Xanax] 0.5 mg PO BID PRN #6 tab 12/11/20 [Rx] Acetaminophen Tab [Tylenol] 650 mg PO Q6HR PRN tab 12/11/20 [Rx] Budesonide-Formot 160-4.5 Mcg [Symbicort 160-4.5 Mcg Inhaler] 2 puff INHALATION BID #1 inhaler 12/11/20 [Rx] HYDROcodone/APAP 7.5-325MG [[place] 7.5-325] 1 tab PO QID PRN #10 tab 12/11/20 [Rx] Follow up Appointment(s)/Referral(s): Jonah Encarnacion MD [Primary Care Provider] - 1-2 days Ambulatory/Diagnostic Orders: Complete Blood Count w/diff [LAB.AMB] Time Frame: 3 Days, Location: None Selected Activity/Diet/Wound Care/Special Instructions: Patient is going to [facility] as tolerated Continue with antibiotic until finished Continue with breathing inhalational treatments follow up with primary care provider upon discharge Continue regular diet Repeat labs of CBC and BMP in 2-3 days Discharge Disposition: TRANSFER TO SNF/ECF
== END 2020-12-11 15:19 | DRG 690 ==
LOC: EC 16:01 → 5NMEDONC 20:22 → OBSVTOIN 12-09 10:04
PROVIDERS: ADMIT Hospitalist; ATTEND Hospitalist
DX: N39.0 Urinary tract infection, site not specified (principal); N17.9 Acute kidney failure, unspecified; E86.0 Dehydration; Z20.822 Contact with and (suspected) exposure to COVID-19; E78.5 Hyperlipidemia, unspecified; Z96.651 Presence of right artificial knee joint; I25.10 Atherosclerotic heart disease of native coronary artery without angina pectoris; J44.9 Chronic obstructive pulmonary disease, unspecified; K21.9 Gastro-esophageal reflux disease without esophagitis; G72.89 Other specified myopathies; N39.3 Stress incontinence (female) (male); N40.0 Benign prostatic hyperplasia without lower urinary tract symptoms; G25.81 Restless legs syndrome; F17.210 Nicotine dependence, cigarettes, uncomplicated; F41.8 Other specified anxiety disorders; I10 Essential (primary) hypertension; M19.91 Primary osteoarthritis, unspecified site; W19.XXXA Unspecified fall, initial encounter; Z82.49 Family history of ischemic heart disease and other diseases of the circulatory system; Z85.46 Personal history of malignant neoplasm of prostate; Z91.81 History of falling; Z79.82 Long term (current) use of aspirin; Z79.899 Other long term (current) drug therapy; Z81.8 Family history of other mental and behavioral disorders; I25.2 Old myocardial infarction; Z95.5 Presence of coronary angioplasty implant and graft
CPT/HCPCS: 36415; 71046; 80048; 80053; 81001; 83605; 83735; 83880; 84484; 85025; 85610; 85730; 87086; 87635; 93005; 96360; 96361; 99285